=== PATIENT | female | born 1975 | race Caucasian/White ===

== ENCOUNTER 2016-11-08 14:11 | Emergency (ER) | payer BC, OTHER ==
--- NOTE | 2016-11-08 15:29 | XR ---
EXAMINATION TYPE: XR elbow complete RT DATE OF EXAM: 11/08/2016 3:23 PM COMPARISON: NONE HISTORY: Elbow pain TECHNIQUE: 3 views FINDINGS: I see no fracture nor dislocation. Joint spaces are normal. There is no sign of elbow joint effusion. IMPRESSION: Negative right elbow exam.
[2016-11-08] MEDS ORDERED: IBUPROFEN 800 MG TAB PO STA (15:30)
--- NOTE | 2016-11-08 15:30 | XR ---
EXAMINATION TYPE: XR forearm RT DATE OF EXAM: 11/08/2016 3:23 PM COMPARISON: NONE HISTORY: Elbow pain TECHNIQUE: 2 views FINDINGS: I see no fracture nor dislocation. Radius and ulna appear intact. There are no pathologic c alcifications. IMPRESSION: Negative right forearm exam.
--- NOTE | 2016-11-08 15:34 | ED ---
Upper Extremity HPI - General Chief Complaint: Extremity Injury, Upper Stated Complaint: shoulder & elbow pain Time Seen by Provider: 11/08/16 15:10 Source: patient Mode of arrival: ambulatory Limitations: no limitations - History of Present Illness Initial Comments: Patient is a 41-year-old female with medical history significant for bilateral carpal tunnel disease, presenting to the emergency department with complains of right elbow pain status post fall 4 days ago. Patient states she fell at work. Patient states she is unable to extend her right arm and is unable to maintain a steady grasp with her right hand. Patient denies previous injury, surgery, or trauma to right upper extremity. MD Complaint: Injury to:: right, elbow Onset/Timin -: days(s) Other Injuries: none Handedness: right Place: work Severity scale (1-10): 9 Improves With: immobilization Worsens With: movement of extremity Context: fall Associated Symptoms: weakness (Weakness of right hand) - Related Data Previous Rx's Medication Instructions Recorded Albuterol Inhaler [Ventolin Hfa 1 - 2 puff INHALATION Q4-6H PRN #1 10/27/16 Inhaler] inhaler Benzonatate [Tessalon Perles] 100 mg PO TID #20 cap 10/27/16 Ibuprofen [Motrin] 800 mg PO Q8HR #20 tab 11/08/16 Allergies Allergy/AdvReac Type Severity Reaction Status Date / Time No Known Allergies Allergy Verified 11/08/16 14:42 Review of Systems ROS Statement: Those systems with pertinent positive or pertinent negative responses have been documented in the HPI. ROS Other: All systems not noted in ROS Statement are negative. Past Medical History Additional Past Medical History / Comment(s): chronic back pain , ectopic , recurrent first trimester losses History of Any Multi-Drug Resistant Organisms: None Reported Additional Past Surgical History / Comment(s): rt leg surgery, multiple D&C's, ectopic Past Anesthesia/Blood Transfusion Reactions: No Reported Reaction Past Psychological History: Anxiety, Bipolar, Depression Smoking Status: Current every day smoker Past Alcohol Use History: None Reported Past Drug Use History: Marijuana General Exam Limitations: no limitations General appearance: alert, in no apparent distress Head exam: Present: atraumatic, normocephalic, normal inspection Eye exam: Present: normal appearance Neck exam: Present: normal inspection, full ROM. Absent: tenderness, meningismus, lymphadenopathy Respiratory exam: Present: normal lung sounds bilaterally. Absent: respiratory distress, wheezes, rales, rhonchi, stridor Cardiovascular Exam: Present: regular rate, normal rhythm, normal heart sounds. Absent: systolic murmur, diastolic murmur, rubs, gallop, clicks GI/Abdominal exam: Present: soft, normal bowel sounds. Absent: distended, tenderness, guarding, rebound, rigid Right Shoulder Exam: Present: normal inspection, full ROM. Absent: tenderness, swelling Upper Arm exam: Present: normal inspection. Absent: tenderness, swelling Elbow exam: Present: full ROM (Full range of motion but painful), tenderness ( Lateral aspect). Absent: swelling, laceration Forearm Wrist exam: Present: normal inspection, full ROM. Absent: tenderness, swelling Hand Wrist exam: Present: normal inspection, full ROM. Absent: tenderness, swelling Neuro motor exam: Present: wrist extension intact, thumb opposition intact, thumb IP flexion intact, thumb adduction intact, fingers 2-5 abduction intact Neurosensory exam: Present: 2-point discrimination, radial nerve intact, ulnar nerve intact, median nerve intact, other (Decreased sensation to right thumb, index, and middle finger, chronic per patient.) Vascular: Present: normal capillary refill, radial pulse, brachial pulse, ulnar pulse. Absent: vascular compromise Neurological exam: Present: alert, oriented X3, normal gait Psychiatric exam: Present: normal affect, normal mood Skin exam: Present: warm, dry, intact, normal color. Absent: rash Course Vital Signs 11/08/16 14:36 Temperature 99.0 F Pulse Rate 78 Respiratory 18 Rate Blood Pressure 176/98 O2 Sat by Pulse 96 Oximetry Medical Decision Making - Medical Decision Making Right elbow pain suspect sprain. X-ray negative for fracture or dislocation. Patient instructed on rest, anti-inflammatories, ice, and elevation. Patient instructed to follow-up with [facility] early next week as necessary. Return to the emergency department if symptoms do not improve or get worse. Patient agrees with treatment plan. - Radiology Data Radiology results: report reviewed Right elbow x-ray: No fracture or dislocation. Joint spaces are normal. No sign of elbow joint effusion. Right forearm x-ray: No fracture or dislocation. Radius and ulna appear intact. No pathologic calcifications. Negative right forearm exam Disposition Clinical Impression: Sprain of right elbow Disposition: HOME SELF-CARE Condition: Good Instructions: Elbow Sprain (ED) Additional Instructions: Continue Motrin 800 mg every 8 hours around the clock for 24-48 hours. Apply ice 4 times a day for approximately 15 minutes. Elevate elbow above her heart when sleeping. Follow-up with [facility] as directed. Follow-up with primary care physician as directed. Patient return to the emergency department if symptoms do not improve or get worse. Prescriptions: Ibuprofen [Motrin] 800 mg PO Q8HR #20 tab Referrals: None,Stated [Primary Care Provider] - 1-2 days Chris Jesus MD [Medical Doctor] - 1-2 days Time of Disposition: 15:47
[2016-11-08 15:58] VITALS: BP 171/92; PULSE 79; RESP 16; TEMP 97.6
== END 2016-11-08 16:04 | disposition home or self-care (01) ==
LOC: EC 14:11
DX: S53.401A Unspecified sprain of right elbow, initial encounter (principal); F17.200 Nicotine dependence, unspecified, uncomplicated; W19.XXXA Unspecified fall, initial encounter; Y99.0 Civilian activity done for income or pay; Z79.899 Other long term (current) drug therapy
CPT/HCPCS: 99283

== ENCOUNTER 2016-12-09 21:56 | Emergency (ER) | payer BC, OTHER ==
[2016-12-09 22:15] VITALS: BP 144/84; PULSE 71; RESP 18; TEMP 98.8
[2016-12-09] MEDS ORDERED: ORPHENADRINE 30 MG/ML 2 ML VIAL IM STA (22:59)
[2016-12-09] MEDS ORDERED: KETOROLAC 60 MG/2 ML VIAL IM STA (22:59)
--- NOTE | 2016-12-09 23:01 | ED ---
Back Pain HPI - General Chief Complaint: Back Pain/Injury Stated Complaint: back pain Time Seen by Provider: 12/09/16 22:32 Source: patient, RN notes reviewed Limitations: no limitations - History of Present Illness Initial Comments: This patient is a 41-year-old woman who states that she has a history of chronic intermittent back pain. She states that she believes she aggravated it when she slipped on some ice and fell landing on her buttocks around 6 AM today when she was getting ready to drive her to work. The patient states that she did try taking ibuprofen, but that the pain continues and she is not feeling like she can rest adequately. The patient indicates the bilateral lower back. States that the pain is currently moderate intensity. The pain gets worse if she bends or if she is sitting for long time. The pain is a little better if she is upright. The patient denies any radiation to the legs. She denies any change in bladder or bowel movements or any saddle anesthesia. MD Complaint: back pain, fall Onset/Timin -: hour(s) Similar Symptoms Previously: Yes Place: street Radiation: none Severity: moderate Quality: aching Consistency: constant Improves With: walking Worsens With: movement, sitting upright Context: fall Associated Symptoms: denies other symptoms Treatments Prior to Arrival: NSAIDS - Related Data Home Medications Medication Instructions Recorded Confirmed Albuterol Inhaler [Ventolin Hfa 1 - 2 puff INHALATION RT-Q4H PRN 12/09/16 Inhaler] Ibuprofen [Motrin] 800 mg PO Q8HR PRN 12/09/16 12/09/16 Previous Rx's Medication Instructions Recorded Ibuprofen [Motrin] 800 mg PO Q8HR PRN #20 tab 12/09/16 Methocarbamol [Robaxin-750] 750 mg PO TID PRN #30 tablet 12/09/16 Allergies Allergy/AdvReac Type Severity Reaction Status Date / Time No Known Allergies Allergy Verified 12/09/16 22:28 Review of Systems ROS Statement: Those systems with pertinent positive or pertinent negative responses have been documented in the HPI. ROS Other: All systems not noted in ROS Statement are negative. Constitutional: Denies: fever, chills, weakness Cardiovascular: Denies: chest pain, syncope Gastrointestinal: Denies: abdominal pain, vomiting, diarrhea, constipation Genitourinary: Denies: dysuria, frequency, hematuria Musculoskeletal: Reports: as per HPI, back pain Skin: Denies: rash, lesions Neurological: Denies: headache, weakness, numbness, paresthesias, abnormal gait Past Medical History Additional Past Medical History / Comment(s): chronic back pain , ectopic , recurrent first trimester losses History of Any Multi-Drug Resistant Organisms: None Reported Additional Past Surgical History / Comment(s): rt leg surgery, multiple D&C's, ectopic Past Anesthesia/Blood Transfusion Reactions: No Reported Reaction Past Psychological History: Anxiety, Bipolar, Depression Smoking Status: Current every day smoker Past Alcohol Use History: None Reported Past Drug Use History: Marijuana General Exam Limitations: no limitations General appearance: alert, in no apparent distress Respiratory exam: Present: normal lung sounds bilaterally. Absent: respiratory distress, wheezes, rales, rhonchi, stridor Cardiovascular Exam: Present: regular rate, normal rhythm, normal heart sounds. Absent: systolic murmur, diastolic murmur, rubs, gallop GI/Abdominal exam: Present: soft. Absent: distended, tenderness, guarding, rebound Extremities exam: Absent: pedal edema, calf tenderness Back exam: Present: normal inspection, paraspinal tenderness (Lumbar back). Absent: CVA tenderness (R), CVA tenderness (L), vertebral tenderness Neurological exam: Present: alert, normal gait, reflexes normal. Absent: motor sensory deficit Skin exam: Present: warm, dry, intact, normal color. Absent: rash Course Vital Signs 12/09/16 22:12 Temperature 98.8 F Pulse Rate 71 Respiratory 18 Rate Blood Pressure 144/84 O2 Sat by Pulse 99 Oximetry Disposition Clinical Impression: Strain of lumbar region Disposition: HOME SELF-CARE Condition: Fair Instructions: Chronic Back Pain (ED) Prescriptions: Ibuprofen [Motrin] 800 mg PO Q8HR PRN #20 tab PRN Reason: Pain Methocarbamol [Robaxin-750] 750 mg PO TID PRN #30 tablet PRN Reason: pain Referrals: None,Stated [Primary Care Provider] - 1-2 days
== END 2016-12-09 23:31 | disposition home or self-care (01) ==
LOC: EC 21:56
DX: S33.5XXA Sprain of ligaments of lumbar spine, initial encounter (principal); F17.200 Nicotine dependence, unspecified, uncomplicated; W00.0XXA Fall on same level due to ice and snow, initial encounter
CPT/HCPCS: 99283; 96372 ×2; J2360; J1885

== ENCOUNTER 2017-04-13 14:36 | Emergency (ER) | payer BC ==
[2017-04-13 14:43] VITALS: BP 153/91; PULSE 87; RESP 20; TEMP 99.2
[2017-04-13] MEDS ORDERED: ORPHENADRINE 30 MG/ML 2 ML VIAL IM STA (14:55)
[2017-04-13] MEDS ORDERED: KETOROLAC 60 MG/2 ML VIAL IM STA (14:55)
--- NOTE | 2017-04-13 14:58 | ED ---
Back Pain HPI - General Chief Complaint: Back Pain/Injury Stated Complaint: back pain Time Seen by Provider: 04/13/17 14:51 Source: patient, RN notes reviewed Limitations: no limitations - History of Present Illness Initial Comments: 41-year-old female presents emergency Department with chief complaint of low back pain. She has chronic back pain states occasionally she has exacerbation and requires an injection of pain meds. Patient states she's been doing more work. Patient denies any bowel bladder incontinence or retention. Denies any saddle anesthesias. Patient denies any abdominal pains time. She just has increased pain movement better at rest. Patient states she is to see Dr. Goff and Dr. Ramos - Related Data Home Medications Medication Instructions Recorded Confirmed Albuterol Inhaler [Ventolin Hfa 1 - 2 puff INHALATION RT-Q4H PRN 12/09/16 Inhaler] Ibuprofen [Motrin] 800 mg PO Q8HR PRN 12/09/16 12/09/16 Previous Rx's Medication Instructions Recorded Ibuprofen [Motrin] 800 mg PO Q8HR PRN #20 tab 12/09/16 Methocarbamol [Robaxin-750] 750 mg PO TID PRN #30 tablet 12/09/16 Allergies Allergy/AdvReac Type Severity Reaction Status Date / Time codeine Allergy Itching Verified 04/13/17 14:43 Review of Systems ROS Statement: Those systems with pertinent positive or pertinent negative responses have been documented in the HPI. ROS Other: All systems not noted in ROS Statement are negative. Past Medical History Additional Past Medical History / Comment(s): chronic back pain , ectopic , recurrent first trimester losses History of Any Multi-Drug Resistant Organisms: None Reported Additional Past Surgical History / Comment(s): rt leg surgery, multiple D&C's, ectopic Past Anesthesia/Blood Transfusion Reactions: No Reported Reaction Past Psychological History: Anxiety, Bipolar, Depression Smoking Status: Current every day smoker Past Alcohol Use History: None Reported Past Drug Use History: Marijuana General Exam Limitations: no limitations General appearance: alert, in no apparent distress Respiratory exam: Present: normal lung sounds bilaterally. Absent: respiratory distress, wheezes, rales, rhonchi, stridor Cardiovascular Exam: Present: regular rate, normal rhythm, normal heart sounds. Absent: systolic murmur, diastolic murmur, rubs, gallop, clicks GI/Abdominal exam: Present: soft, normal bowel sounds. Absent: distended, tenderness, guarding, rebound, rigid Extremities exam: Present: other (Bilateral lower extremity neurovascular intact equal strength in color and warmth) Back exam: Present: full ROM, tenderness (Tenderness low back diffusely exaggerated tenderness with palpation), paraspinal tenderness. Absent: vertebral tenderness Neurological exam: Present: alert, oriented X3, CN II-XII intact, reflexes normal. Absent: motor sensory deficit Course Vital Signs 04/13/17 14:41 Temperature 99.2 F Pulse Rate 87 Respiratory 20 Rate Blood Pressure 153/91 O2 Sat by Pulse 99 Oximetry Medical Decision Making - Medical Decision Making 41-year-old female presented emergency department for low back pain. This is chronic pain. Patient is requesting IM injections of pain meds. Patient has no red flag symptoms no neurological deficits. Patient be discharged at this time. Disposition Clinical Impression: Chronic back pain Disposition: HOME SELF-CARE Condition: Stable Instructions: Chronic Back Pain (ED) Additional Instructions: Please return to the Emergency Department if symptoms worsen or any other concerns. Referrals: None,Stated [Primary Care Provider] - 1-2 days Time of Disposition: 14:58
== END 2017-04-13 15:09 | disposition home or self-care (01) ==
LOC: EC 14:36
DX: G89.29 Other chronic pain (principal); M54.5 Low back pain; F17.200 Nicotine dependence, unspecified, uncomplicated; Z88.5 Allergy status to narcotic agent
CPT/HCPCS: 99283; 96372 ×2; J2360; J1885

== ENCOUNTER 2018-07-26 21:03 | Emergency (ER) | payer BC, OTHER ==
[2018-07-26 21:11] VITALS: BP 159/86; PULSE 83; RESP 18; TEMP 98.4
[2018-07-26] MEDS ORDERED: HYDROcodone/APAP 5-325MG 1 EACH TAB PO STA (21:40)
--- NOTE | 2018-07-26 21:59 | ED ---
Lower Extremity Injury HPI - General Source: patient Mode of arrival: ambulatory Limitations: no limitations <Antonette Isidro - Last Filed: 07/27/18 14:29> <No Youngblood - Last Filed: 07/28/18 07:29> - General Chief Complaint: Extremity Injury, Lower Stated Complaint: foot pain Time Seen by Provider: 07/26/18 21:16 - History of Present Illness Initial Comments: This a 42-year-old female with past medical history of previous left ankle sprain 2 months ago who returns today for chief complaint of persistent right ankle pain. Patient states that she was diagnosed with a right ankle sprain 2 months ago she has had chronic pain in the left medial aspect of her ankle. She states that increases with ambulation. She states that she used crutches for 2 weeks as directed as well as the walking boot. However she never follow- up with orthopedic surgery, and discontinued use of both devices. Pt states that last week she rolled her right ankle again but thought nothing of the slight increase in pain. Pt presents today for evaluation of persistent pain in the left ankle that increased with ambulation. Pt states she does take ibuprofen 800mg as prescribed at last visit for the pain however it has not helped. She denies any muscle weakness, numbness, tingling, decreased sensation , pallor or coolness of the extremity, paresthesias (Antonette Isidro) - Related Data Previous Rx's Medication Instructions Recorded Ibuprofen [Motrin] 600 mg PO Q6HR PRN #20 tab 06/12/18 Allergies Allergy/AdvReac Type Severity Reaction Status Date / Time codeine Allergy Itching Verified 07/26/18 21:17 Review of Systems ROS Other: All systems not noted in ROS Statement are negative. Constitutional: Denies: fever, chills ENT: Denies: ear pain, throat pain Respiratory: Denies: cough, dyspnea, wheezes Cardiovascular: Denies: chest pain Gastrointestinal: Denies: abdominal pain, vomiting, constipation Genitourinary: Denies: urgency, dysuria, frequency, hematuria Musculoskeletal: Reports: joint swelling, arthralgia Skin: Denies: rash, lesions, change in color Neurological: Denies: headache, weakness, numbness, paresthesias, confusion <Antonette Isidro - Last Filed: 07/27/18 14:29> ROS Other: All systems not noted in ROS Statement are negative. <No Youngblood P - Last Filed: 07/28/18 07:29> ROS Statement: Those systems with pertinent positive or pertinent negative responses have been documented in the HPI. Past Medical History Additional Past Medical History / Comment(s): chronic back pain , ectopic History of Any Multi-Drug Resistant Organisms: None Reported Additional Past Surgical History / Comment(s): rt leg surgery, multiple D&C's, ectopic Past Anesthesia/Blood Transfusion Reactions: No Reported Reaction Past Psychological History: Anxiety, Bipolar, Depression Smoking Status: Current every day smoker Past Alcohol Use History: Occasional Past Drug Use History: Marijuana <Antonette Isidro L - Last Filed: 07/27/18 14:29> General Exam Limitations: no limitations <Antonette Isidro L - Last Filed: 07/27/18 14:29> <No Youngblood P - Last Filed: 07/28/18 07:29> - General Exam Comments Initial Comments: General: The patient is awake and alert, in no distress, and does not appear acutely ill. Eye: Pupils are equal, round and reactive to light, extra-ocular movements are intact. No nystagmus. There is normal conjunctiva bilaterally. No signs of icterus. Cardiovascular: There is a regular rate and rhythm. No murmur, rub or gallop is appreciated. Respiratory: Lungs are clear to auscultation, respirations are non-labored, breath sounds are equal. No wheezes, stridor, rales, or rhonchi. Musculoskeletal: There is swelling at the medial malleolus of the right ankle. No ecchymosis or obvious deformity. Tenderness to palpation over the medial malleolus, no pain of the lateral, proximal tibia/fibula or forefoot. Full ROM of the ankle b/l including dorsiflexion/plantarflexion, inversion and eversion with tenderness with all movements. Pt is able to full wieght bear. Strength 5/ 5 with all motions of the ankle. Sensation intact of the LE equally b/l. no evidence of foot drop. DP and PT pulses equal bilaterally 2+. Lower extremities are warm and pink b/l. Compartments are soft and compressible. Neurological: A&O x 3. CN II-XII intact, There are no obvious motor or sensory deficits. Coordination appears grossly intact. Speech is normal. Skin: Skin is warm and dry and no rashes or lesions are noted. Psychiatric: Cooperative, appropriate mood & affect, normal judgment. (Antonette Isidro) Vital Signs 07/26/18 21:08 Temperature 98.4 F Pulse Rate 83 Respiratory 18 Rate Blood Pressure 159/86 O2 Sat by Pulse 99 Oximetry Medical Decision Making <Antonette Isidro - Last Filed: 07/27/18 14:29> <No Youngblood - Last Filed: 07/28/18 07:29> - Medical Decision Making Pt given norco for pain mgmt. XR reviewed by myself and Dr. Youngblood at this time there is an isolated medial malleolar fracture without significant displacement. Pt neurovascularly intact, no signs of joint instablity on exam. Pt placed in posterior mold splint with stirrups. Pt given disc with imaging results for orthopedic f/u in next 1-2 days. Pt states she has a pair of crutches at home and does not need a new prescription. Pt was instructed to non- weight bear until orthopedic clearance as well as take ibuprofen, rest, elevate and apply ice 20mins x3 times a day. Pt agreed with plan, denied questions at this time. Case discussed with Dr. Youngblood who agreed with impression and plan. Pt d/c in stable condition. (Antonette Isidro) I was available for consultation in the emergency department. The history and physical exam were done by the midlevel provider. I was consulted for this patient's care. I reviewed the case with the midlevel provider and based on their presentation of the patient, I agree with the assessment, medical decision making and plan of care as documented. (No Youngblood) Disposition Is patient prescribed a controlled substance at d/c from ED?: No Time of Disposition: 22:39 <Antonette Isidro - Last Filed: 07/27/18 14:29> <No Youngblood - Last Filed: 07/28/18 07:29> Clinical Impression: Fracture of medial malleolus of right tibia Disposition: HOME SELF-CARE Condition: Good Instructions: Ankle Fracture (ED) Additional Instructions: Please use medication as discussed. Please use crutches for ambulation. Please follow-up with orthopedic surgery in the next 1-2 days. Please return to emergency room if the symptoms increase or worsen or for any other concerns. Referrals: None,Stated [Primary Care Provider] - 1-2 days Chris Jesus MD [Medical Doctor] - 1-2 days
--- NOTE | 2018-07-26 21:59 | XR ---
PROCEDURE: XR tibia fibula LT - 2V DATE AND TIME: 07/26/2018 9:52 PM CLINICAL INDICATION: [facility] Pain TECHNIQUE: AP and lateral views from the knee to the ankle. COMPARISON: None FINDINGS: There is a fracture of the medial malleolus, involving the tibiotalar joint. Mortise is intact. Distal tibia fibula syndesmosis unremarkable. The posterior malleolus and lateral malleolus are intact. IMPRESSION: Medial malleolus fracture.
--- NOTE | 2018-07-26 22:01 | XR ---
PROCEDURE: XR ankle complete LT 3V DATE AND TIME: 07/26/2018 9:52 PM CLINICAL INDICATION: [facility] Pain TECHNIQUE: Department protocol. 3V COMPARISON: None FINDINGS: There is prominent soft tissue swelling. There is an oblique intra-articular fracture of th e medial malleolus. The mortise is intact. No other fractures. IMPRESSION: Medial malleolar fracture.
== END 2018-07-26 22:58 | disposition home or self-care (01) ==
LOC: EC 21:03
DX: S82.54XA Nondisplaced fracture of medial malleolus of right tibia, initial encounter for closed fracture (principal); G89.29 Other chronic pain; M25.572 Pain in left ankle and joints of left foot; F17.200 Nicotine dependence, unspecified, uncomplicated; Z88.5 Allergy status to narcotic agent; X50.9XXA Other and unspecified overexertion or strenuous movements or postures, initial encounter; Y92.009 Unspecified place in unspecified non-institutional (private) residence as the place of occurrence of the external cause
CPT/HCPCS: 29515; 99283

== ENCOUNTER 2018-08-27 06:56 | Emergency (ER) | payer BC, OTHER ==
[2018-08-27 07:05] VITALS: BP 177/97; PULSE 98; RESP 16; TEMP 98.3
--- NOTE | 2018-08-27 08:04 | ED ---
General Adult HPI - General Chief complaint: Extremity Injury, Lower Stated complaint: Cast too tight Time Seen by Provider: 08/27/18 07:55 Source: patient, RN notes reviewed Mode of arrival: ambulatory Limitations: no limitations - History of Present Illness Initial comments: Patient is a pleasant 42-year-old female presenting to the emergency department because her cast feels too tight. Patient did have her cast placed just yesterday. Patient states she does have a distal tibia fracture. Patient states she did have a cast for 4 weeks and it was replaced just yesterday. Patient states she has discomfort through the majority of the cast. Patient states her orthopedic doctor is Dr. bills. Patient states her actual injury was several months ago. No calf swelling. - Related Data Previous Rx's Medication Instructions Recorded Ibuprofen [Motrin] 600 mg PO Q6HR PRN #20 tab 06/12/18 Allergies Allergy/AdvReac Type Severity Reaction Status Date / Time codeine Allergy Itching Verified 07/26/18 21:17 Review of Systems ROS Statement: Those systems with pertinent positive or pertinent negative responses have been documented in the HPI. ROS Other: All systems not noted in ROS Statement are negative. Constitutional: Denies: fever Eyes: Denies: eye pain ENT: Denies: ear pain Respiratory: Denies: cough Cardiovascular: Denies: chest pain Endocrine: Denies: fatigue Gastrointestinal: Denies: abdominal pain Genitourinary: Denies: dysuria Musculoskeletal: Denies: back pain Skin: Denies: rash Neurological: Denies: weakness Past Medical History Additional Past Medical History / Comment(s): chronic back pain , ectopic History of Any Multi-Drug Resistant Organisms: None Reported Additional Past Surgical History / Comment(s): rt leg surgery, multiple D&C's, ectopic Past Anesthesia/Blood Transfusion Reactions: No Reported Reaction Past Psychological History: Anxiety, Bipolar, Depression Smoking Status: Current every day smoker Past Alcohol Use History: Occasional Past Drug Use History: Marijuana General Exam Limitations: no limitations General appearance: alert, in no apparent distress Respiratory exam: Present: normal lung sounds bilaterally Cardiovascular Exam: Present: regular rate, normal rhythm GI/Abdominal exam: Present: soft. Absent: tenderness Extremities exam: Present: normal inspection (Left lower leg cast is present. No swelling behind the knee. Toes are visible and patient is freely able to move them. Cap refill less than 2 seconds. No color change. Sensation intact. ) Neurological exam: Present: alert. Absent: motor sensory deficit Psychiatric exam: Present: normal affect, normal mood Skin exam: Present: normal color. Absent: rash Course Vital Signs 08/27/18 07:03 Temperature 98.3 F Pulse Rate 98 Respiratory 16 Rate Blood Pressure 177/97 O2 Sat by Pulse 100 Oximetry - Reevaluation(s) Reevaluation #1: 08/27/18 09:33 Cast removed by nursing staff. Foot reexamined. Patient symptom-free. Procedures - Orthopedic Splinting/Casting Injury #1 Side: left Lower Extremity Injury Location: short leg Lower Extremity Immobilizer: posterior splint Disposition Clinical Impression: Cast discomfort Disposition: HOME SELF-CARE Condition: Stable Instructions: Leg Fracture (ED) Additional Instructions: Please follow-up with your orthopedic doctor beginning of the week for repeat cast placement. Return for increased pain, worsening symptoms or other concerns. Is patient prescribed a controlled substance at d/c from ED?: No Referrals: Soledad Francisco MD [STAFF PHYSICIAN] - 1-2 days Erik Bills MD [REFERRING] - 1-2 days Time of Disposition: 09:34
== END 2018-08-27 09:58 | disposition home or self-care (01) ==
LOC: EC 06:56
DX: Z47.89 Encounter for other orthopedic aftercare (principal); F17.200 Nicotine dependence, unspecified, uncomplicated; Z88.5 Allergy status to narcotic agent
CPT/HCPCS: 29515; 99282

== ENCOUNTER → 2019-03-17 | Outpatient (CLI) | payer BC ==
--- NOTE | 2019-03-17 16:13 | MR ---
EXAMINATION TYPE: MR lumbar spine wo/w con DATE OF EXAM: 03/17/2019 COMPARISON: Lumbar spine x-ray August 02, 2016. HISTORY: Low back pain per order. Pain for 21 years causing pain into bilateral lower extremities per patient. TECHNIQUE: Multiplanar, multisequence images of the lumbar spine is performed without and with IV contrast, util izing 7.5 mL intravenous Gadavist FINDINGS: Sagittal images of the lumbar spine show vertebral body heights and alignment to appear sat isfactory. There is disc desiccation L4-L5 and L5-S1 levels. There is moderate disc space narrowing w ith heterogeneous bony uptake to endplate changes and mild anterior spurring L5-S1 level. The conus medullaris is normal in position and signal ending mid L1 level. No suspicious enhancement is seen. Axial images show the T12-L1 and L1-L2 levels to appear within normal limits. Axial images at L2-L3 and the L3-L4 level show mild facet degenerative changes bilaterally but spinal canal is preserved and bilateral neural foramina are patent. Axial images at the L4-L5 level shows mild to moderate facet degenerative changes bilaterally. There is focal left paracentral disc protrusion mildly facing anterior thecal sac, bilateral neural foramin a are patent. Axial images at the L5-S1 level show mild facet degenerative changes bilaterally. There is broad-base d right paracentral disc protrusion with annular tear effacing anterolateral thecal sac and right lat eral recess and causing moderate right-sided inferior neural foraminal narrowing. Left-sided neural f oramen is patent. No suspicious incidental retroperitoneal findings are present. IMPRESSION: Multilevel degenerative changes mid to lower lumbar spine with findings most prominent at L4-L5 and L5-S1 level as detailed above.
== END | disposition home or self-care (01) ==
LOC: RADMRIMAIN 15:22
PROVIDERS: ATTEND Family Medicine
DX: M47.817 Spondylosis without myelopathy or radiculopathy, lumbosacral region (principal); M47.816 Spondylosis without myelopathy or radiculopathy, lumbar region
CPT/HCPCS: 72158; A9585

== ENCOUNTER → 2024-06-26 | Outpatient (CLI) | payer OTHER ==
--- NOTE | 2024-06-27 08:55 | MR ---
EXAMINATION TYPE: MR lumbar spine wo con DATE OF EXAM: 06/26/2024 5:12 PM CLINICAL INDICATION: Female, 48 years old with history of M54.50 LOW BACK PAIN, UNSPECIFIED R20.02, M 54.16; [facility], COMPARISON: 03/17/2019 TECHNIQUE: Multi planar, multi sequence imaging was performed utilizing: T1-weighted, T2-weighted, a nd turbo inversion recovery imaging of the lumbar spine. IV Contrast: cc . (None if empty) FINDINGS: Alignment: The lumbar vertebral bodies have preserved heights and alignment. Cord: The conus medullaris and the distal spinal cord appear unremarkable with regards to their signa l intensity and morphology. Bones/Discs: Mild degeneration changes throughout the spine with osteophyte formation and facet joint arthropathy. L4-L5 and L5-S1 disc desiccation is present. Reactive adjoining endplate edema at . L5- S1. T12-L1: No evidence of significant spinal canal stenosis or neural foraminal stenosis. L1-L2: No evidence of significant spinal canal stenosis. Facet joint arthropathy mild bilateral neura l foraminal stenosis. L2-L3: No evidence of significant spinal canal stenosis. Facet joint arthropathy mild bilateral neura l foraminal stenosis. L3-L4: Disc bulge and facet joint arthropathy result in mild spinal canal and moderate bilateral neur al foraminal stenosis. L4-L5: Disc bulge and facet joint arthropathy result in mild spinal canal and moderate bilateral neur al foraminal stenosis. L5-S1: Large right disc protrusion/extrusion similar to 2019 displacing right canal nerves, severe ri ght and moderate to severe left neural foraminal stenosis. No significant spinal canal or neural fora orin stenosis in the remainder of the visualized levels. Other findings: None. IMPRESSION: Overall similar exam to prior in 2019. 1. L5-S1 right central/right foraminal disc extrusion/protrusion similar to 2019 displacing multiple nerves. There is severe right and moderate to severe left neural foraminal stenosis. 2. No definitive evidence significant spinal canal stenosis. 3. Mild lower spine disc degeneration with associated osteoarthritic changes.
== END | disposition home or self-care (01) ==
LOC: RADMRIMAIN 16:24
PROVIDERS: ATTEND Family Medicine
DX: M51.17 Intervertebral disc disorders with radiculopathy, lumbosacral region (principal); M47.26 Other spondylosis with radiculopathy, lumbar region; M99.73 Connective tissue and disc stenosis of intervertebral foramina of lumbar region
CPT/HCPCS: 72148

== ENCOUNTER → 2024-08-17 | Outpatient (CLI) | payer OTHER ==
--- NOTE | 2024-08-17 15:41 | CT ---
EXAMINATION TYPE: CT lumbar spine wo con CT DLP: 920 mGycm, Automated exposure control for dose reduction was used. DATE OF EXAM: 08/17/2024 1:35 PM COMPARISON: MRI lumbar spine 06/26/2024, 03/17/2019. CLINICAL INDICATION:Female, 48 years old with history of M54.16 low back pain; PHH, Low back and leg pain, pt did state old injury when she was younger. TECHNIQUE: Multiple axial images were obtained from the midportion of T11 through the sacroiliac jonathan nts. Soft tissue and bone windows in coronal and sagittal planes were obtained and reviewed. Contrast used: none. Oral contrast used: none. FINDINGS: Alignment: There are 5 lumbar type vertebral bodies within normal alignment. Bone: No evidence of acute fracture is identified. Remote fracture versus congenital deformity of th e left L3 transverse process. Discs: T12-L1: No spinal canal or neural foraminal stenosis is identified. L1-L2: No spinal canal or neural foraminal stenosis is identified. L2-L3: No spinal canal or neural foraminal stenosis is identified. L3-L4: No spinal canal or neural foraminal stenosis is identified. L4-L5: Broad-based disc bulge with possible central superior disc extrusion of 3 mm along the posteri or aspect of the L4 vertebral body. Results in mild effacement of the anterior thecal sac. Bilateral facet joint enlargement. Mild bilateral neural foraminal narrowing. L5-S1: Redemonstration of a large right paracentral disc protrusion with calcification superimposed u robinson a broad-based disc bulge. This results in moderate effacement of the anterior and right aspect of the thecal sac with effacement of the right nerves. There is extension into the right foraminal zone . Bilateral facet arthropathy with moderate left neural foraminal stenosis. Severe right neuroforamin al stenosis. Other: Periampullary duodenal diverticulum. Mild atherosclerotic calcification of the aorta and its b ranches. IMPRESSION: 1. No evidence for spinal fracture. 2. Overall are similar L5-S1 disc bulge with large right disc protrusion with moderate effacement of anterior thecal sac with extension to the right foraminal zone resulting in severe right neural luc inal stenosis. Facet arthropathy with disc bulge results in moderate left neural foraminal stenosis a t this level. 3. L4-L5 disc bulge with possible small superior central disc extrusion. There is also mild effacemen t of the anterior thecal sac. This could further evaluated with MRI lumbar spine. [facility], , 08/17/2024 3:38 PM
== END | disposition home or self-care (01) ==
LOC: RADCTMAIN 13:14
PROVIDERS: ATTEND Orthopaedic Surgery
CPT/HCPCS: 72131

== ENCOUNTER → 2024-09-25 | Outpatient (CLI) | payer OTHER ==
[2024-09-25 18:41] LABS: Basophils # (A) 0.09 X 10*3/uL (0.00-0.10); Basophils % (A) 0.9 %; Eosinophils % (A) 4.1 %; HCT 44.2 % (37.2-46.3); HGB 14.4 g/dL (12.0-15.0); Lymphocytes # (A) 3.87 X 10*3/uL (0.90-5.00); Lymphocytes % (A) 39.6 %; MCH 31.2 pg (27.0-32.0); MCHC 32.6 g/dL (32.0-37.0); MCV 95.9 FL (80.0-97.0); Mean Platelet Volume 10.7 FL (9.5-12.2); Monocytes # (A) 0.67 X 10*3/uL (0.20-1.00); Monocytes % (A) 6.9 %; NRBC Per 100 WBC 0 X 10*3/uL (0.00-0.01); Neutrophils # (A) 4.68 X 10*3/uL (1.80-7.70); Neutrophils % (A) 47.9 %; Platelet Count 251 X 10*3/uL (140-440); RBC 4.61 X 10*6/uL (4.10-5.20); RDW 15.2 % (11.5-14.5); WBC 9.77 X 10*3/uL (4.50-10.00)
[2024-09-25 19:06] LABS: ALT 17 U/L (8-44); AST 16 U/L (13-35); Albumin 4.1 g/dL (3.8-4.9); Albumin/Globulin Ratio 1.24 Ratio (1.60-3.17); Alkaline Phosphatase 113 U/L (41-126); BUN/Creat Ratio 14.22 Ratio (12.00-20.00); Blood Urea Nitrogen 12.8 mg/dL (9.0-27.0); Calcium 9.8 mg/dL (8.7-10.3); Chloride 103 mmol/L (96-109); Globulin 3.3 g/dL (1.6-3.3); Glucose 99 mg/dL (70-110); Potassium 4.5 mmol/L (3.5-5.5); Sodium 141 mmol/L (135-145); Total Bilirubin 0.3 mg/dL (0.3-1.2); Total Protein 7.4 g/dL (6.2-8.2)
[2024-09-25 19:51] LABS: INR 0.99 sec (0.93-1.11); Prothrombin Time 10.7 sec (9.9-11.9)
== END | disposition home or self-care (01) ==
LOC: LABWHC1 15:40
PROVIDERS: ATTEND Family Medicine
DX: Z01.818 Encounter for other preprocedural examination (principal); M51.26 Other intervertebral disc displacement, lumbar region; M48.061 Spinal stenosis, lumbar region without neurogenic claudication; E55.9 Vitamin D deficiency, unspecified
CPT/HCPCS: 36415; 80053; 82306; 85025; 85610; 93005

== ENCOUNTER → 2024-10-04 | Outpatient (CLI) | payer OTHER | END | disposition home or self-care (01) | LOC: LABPAT 10:57 | PROVIDERS: ATTEND Orthopaedic Surgery | DX: Z01.812 Encounter for preprocedural laboratory examination (principal); M51.26 Other intervertebral disc displacement, lumbar region; Z22.322 Carrier or suspected carrier of Methicillin resistant Staphylococcus aureus | CPT/HCPCS: 86850; 86900; 86901; 87070 ==

== ENCOUNTER 2024-10-10 08:25 | Day surgery (SDC) | payer OTHER ==
--- NOTE | 2024-10-10 06:35 | P.HPOR ---
History of Present Illness H&P Date: 10/04/24 .D:Date: 10/04/24 : 04:44pm .T:Title: *Pre-OP H1 [facility] [address] [place] [id number]| PROVIDER: GARRET ARZATE DO CLINICAL SUMMARY: *Ms. Waite is a 49-year-old female who presents for pre-operative evaluation for planned L5-S1 Left MIS TLIF. She reports a 4-year history of progressive, severe lumbar pain (VAS 10/10) with bilateral lower extremity radiculopathy. Symptoms include sharp and throbbing pain radiating to toes, with documented episodes of lower extremity giving way. Conservative management including physical therapy, multiple medication trials (Celebrex, Flexeril, Gabapentin, Prednisone, Duloxetine, NSAIDs), and activity modification has failed to provide relief. Imaging reveals L5-S1 disc extrusion/protrusion with severe right and moderate to severe left neural foraminal stenosis, confirmed by both MRI (06/26/24) and CT (08/17/24). Examination shows positive straight leg raise, motor weakness (4/5) in lower extremities, and decreased reflexes (1/2) at patellar and Achilles on left. Patient demonstrates understanding of surgical risks and wishes to proceed with intervention.Ms. Waite [id number] female who presents for pre-operative evaluation for planned L5-S1 Left MIS TLIF. She reports a 4-year history of progressive, severe lumbar pain (VAS 10/10) with bilateral lower extremity radiculopathy. Symptoms include sharp and throbbing pain radiating to toes, with documented episodes of lower extremity giving way. Conservative management including physical therapy, multiple medication trials (Celebrex, Flexeril, Gabapentin, Prednisone, Duloxetine, NSAIDs), and activity modification has failed to provide relief. Imaging reveals L5-S1 disc extrusion/protrusion with severe right and moderate to severe left neural foraminal stenosis, confirmed by both MRI (06/26/24) and CT (08/17/24). Examination shows positive straight leg raise, motor weakness (4/5) in lower extremities, and decreased reflexes (1/2) at patellar and Achilles on left. Patient demonstrates understanding of surgical risks and wishes to proceed with intervention. DEMOGRAPHICS: Age: 49 year Height: 5'2" Weight: 187 lbs BP:/ BMI: 34.20 kg/m2 Occupation: *Unemployed CC: lumbar pain * VAS: 10 HISTORY: Ms. Waite presents to the office today, 10/04/24, for a pre-operative appoitnemnt preceding her L5-S1 Left MIS TLIF. Patient describes a severe constant sharp and throbbing lumbar pain that has been progressing over the last 4 years. Patient denies any injury to indicate onset of symptoms. In addition to her lumbar pain, patient states it radiates into the bilateral lower extremities into her toes. Patient does state that her lower extremities have given out, resulting in x 2 falls. She states that she has difficulty with changing positions from sitting to standing. Patient has trialed Celebrex without resolution of her symptoms. Patient has trialed the below listed treatm ent modalities without any relief. Otherwise patient denies any f/c/sob/cp, perineal numbness or tingling, bowel or bladder incontinence/retention. Patient is ambulatoryindependently. P1 The patients past social, medical, family, surgical history, as well as review of systems, have been reviewed. Please refer to the History and Physical form that has been scanned into our electronic medical record system. R0 16 points review of systems completed and as stated in HPI, all other systems reviewed are negative. PAST TREATMENTS: PAST IMAGING: YES -MRI, CT, XR TRAUMA RELATED: NO - WORK RELATED: NO - PT IN LAST 6 MONTHS: YES -no changes PHYSICIAN DIRECTED HOME EXERCISE PROGRAM: YES -no help ACTIVITY MODIFICAITON: YES -limited BLTPP MEDICATIONS: YES -Flexeril, motrin, gabapentin, prednisone ALTERNATIVE INTERVENTIONS (CHIROPRACTIC, ACCUPUNCTURE, MASSAGE, RICE): YES - BRACING: NO - INJECTIONS (MUKUL, TF, RFA): NO - MEDICAL HISTORY: Past Medical History: REVIEWED STATED IN CHART Past Surgical History: REVIEWED STATED IN CHART Social History: REVIEWED STATED IN CHART SMOKING: Never smoker ETOH: None SUBSTANCES: None Family History: REVIEWED STATED IN CHART P1 Current Medications: Rx: cariprazine 1.5 mg capsule Ref: 0 Instructions: take 1 capsule (1.5 mg) by oral route once daily Rx: DULoxetine 60 mg capsule,delayed release Ref: 0 Instructions: take 1 capsule (60 mg) by oral route once daily Rx: CeleBREX 200 mg capsule Ref: 0 Instructions: take 1 capsule (200 mg) by oral route 2 times per day Rx: cyclobenzaprine 10 mg tablet Ref: 0 Instructions: take 1 tablet (10 mg) by oral route 3 times per day Rx: gabapentin 300 mg capsule Ref: 0 Instructions: take 1 capsule (300 mg) by oral route 3 times per day P1 PHYSICAL EXAM: General: AOX3, NAD, Well hydrate, well nourished HEENT: No lumps or masses Extremities: No color changes, no pooling INTEGUMENT: Appearance: Normal color and turgor Surgical Incisions: NA Hairy Patches: ABSENT Dorsal Skin Dimples: Normal [employer] spots: ABSENT PALPATION: TTP Midline: NO Paracervical: YES Parathoracic: NO Paralumbar: NO SIJ TESTING: NT POSTURAL BALANCE: Coronal: BALANCED Sagittal: BALANCED Shoulder height: LEVEL Pelvic Girdle: LEVEL ROM AND APPEARANCE: Neck: RESTRICTED Lumbar: RESTRICTED Shoulders: Symmetrical Hips: Symmetrical Knees: Symmetrical Hands: Symmetrical Feet: Symmetrical VASCULAR STATUS: PALPABLE PULSES B/L UE AND LE 2/4 RAD/ULNAR/DP/PT Edema: NONE NEUROLOGICAL EXAMINATION: Mental Status: Awake, alert, fully oriented with normal attention, concentration, and memory. Fluent appropriate speech. CRANIAL NERVES: I: Olfactory not assessed. II: Visual acuity normal, no visual field deficit noted with confrontation. III, IV: Normal pupillary reflexes & intact extraocular movements without nystagmus. V, : Intact symmetrical facial sensation. VII: Intact symmetrical facial motor movement: Hearing intact. IX, X: Intact gag, swallow, & normal voice. XI: Sternocleidomastoid, trapezius function intact. XII: Tongue midline with normal movements. TENSIONING: * L'HERMITTE'S SIG:NEG SPURLUNG'S SIGN:NEG CUBITAL TUNNEL COMPRESSION:NEG TINELS AT WRIST:NEG STRAIGH LEG RAISE:POS CONTRALATERAL STRAIGHT LEG RAISE: NEG MOTOR EXAM (0-5/5, NT) Muscle appearance: Symmetrical, without signs of atrophy or dystrophy UPPER EXTREMITY RIGHT LEFT Shoulder Abduction 5 5 Biceps 5 5 Triceps 5 5 Wrist Extension 5 5 Hand Intrinsics 5 5 Assistant Plant Control Operator 5 5 LOWER EXTREMITY RIGHT LEFT Hip Flexion 4 4 Knee Extension 4 4 Knee Flexion 4 4 Dorsiflexion 4 4 Plantarflexion 4 4 EHL 4 4 FHL 4 4 REFLEXES (0-4/2, NT): RIGHT LEFT Bicep 2 2 Brachioradialis 2 2 Triceps 2 2 Patellar 2 1 Achilles 2 1 PATHOLOGICAL REFLEXES: RIGHT LEFT MONACO'S ABSENT ABSENT CLONUS ABSENT ABSENT BABINSKI ABSENT ABSENT RECTAL TONE: INTACT/NT SENSATION (0-4, NT): Sensation intact to LT and Pain * C5-T1 distribution BUE * L2-S2 distribution BLE *Exceptions below* DERMATOMAL DEFICIT/RADICULAR PATTERN: L5-S1 RIGHT GAIT AND FUNCTIONAL EVALUATION: AMBULATORY AID none ROMBERG'S TEST INTACT HAND AND FINGER DEXTERITY INTACT NO DYSDIADOCHOKINESIA EXAM NEG B/L YES TOE/HEEL WALK INTACT WITH GOOD BALANCE YES SQUAT AND RISE W/O ASSISTANCE TO 60 DEG KNEE FLEXION YES SINGLE LEG STANCE INTACT [place] NEG IMAGING: XRay Lumbar Multiview (AP, Lateral, Flexion, Extension) with AP pelvis; 5 [facility] at [facility] on 07/19/24: L4-S1 spondylitic and degenerative changes with preserved alignment. There is diminished disc height at these levels, most significant L5-S1. Vertebral body heights are preserved. No acute osseous abnormalities. Pelvis: The visualized sacrum and iliac wings are within normal limits. [facility] 06[facility]26/24 of Lumbar Spine: IMPRESSION: Overall similar exam to prior in 2019. 1. L5-S1 right central/right foraminal disc extrusion/protrusion similar to 2019 displacing multiple nerves. There is severe right and moderate to severe left neural foraminal stenosis. 2. No definitive evidence significant spinal canal stenosis. 3. Mild lower spine disc degeneration with associated osteoarthritic changes. CT Date: 08/17/24 Location: [facility] Region: lumbar Contrast: N IMAGES ARE REVIEWED WITH THE PATIENT IN OFFICE AND DEMONSTRATE THE FOLLOWING: FINDINGS: similar findings and MRI with no evidence for fracture overall L5-S1 disc herniation with right paracentral effacement of the thecal sac extension of the right foraminal region causing severe right foraminal stenosis. Facet arthropathy as well on the right and left L4 5 and 51. There is mild effacement of the anterior thecal sack of L4-L5 as well. No acute fractures. IMPRESSION: It was my pleasure to have seen and examined Lita. I reviewed the patient's clinical syndrome, physical findings, and imaging studies during the appointment today. It is my impression that the patient has a diagnosis of. 1.L5-S1 HNP 2.L5-S1 spondylosis and stenosis 3.Lower extremity radiculopathy PLAN: DISCUSSION: -I discussed the patient's imaging as well as clinical symptoms and findings with him as well as treatment options nonoperative and operative. At this time they have elected to pursue operative treatment for this as they have failed conservative measures including cini-tgr-pjubqlf medications prescription medications physical therapy home exercise chiropractics or massage and epidural steroid injections. SURGICAL RECOMMENDATION -L5-S1 minimally invasive posterior lateral and interbody fusion, right Surgical Procedure Risk Review Lita Waite is a 49 year old female presenting for evaluation of sudden onset of severe lower extremity pain weakness difficulty with ambulation. It was my pleasure to have seen and examined Ms. Waite. In our visit today we have had a chance to go over subjective complaints, physical examination findings and treatments, including the natural course history without intervention and various interventional options. The imaging demonstrates severe spondylosis with disc collapse and disc degeneration height loss noted complete changes disc osteophyte complex right paracentral herniation causing severe foraminal and moderate central as well as lateral recess stenosis L5-S1. . On physical exam, Ms. Waite demonstrates severe low back pain and axial as well as lower extremity radiculopathy lower extremity weakness progressive changes in lower extremity radiculopathy and weakness.. I explained to the patient that as her condition progresses it could cause Continued symptoms progressive symptoms neurologic progression . At this time, based on the patients imaging and physical exam, I recommend surgery in the form or a: L5-S1 minimally invasive posterior lateral and interbody fusion, right . I discussed the risk and benefits of this procedure at length with Ms. Waite. The patient agreed to consider pursuing the procedure mentioned above. Plan: 1. L5-S1 minimally invasive posterior lateral and interbody fusion, right 2. Follow up with PCP for surgical clearance 3. Review of surgical risks and benefits as well as an educational packet on the proposed surgical procedure. 4. appropriate preoperative labs ordered EKG chest x-ray and clearances Risks: All surgical procedures come with inherent risks, including those related to positioning, anesthesia, intraoperative findings, and postoperative complications. It is important to understand that surgery does not come with any guarantee of a successful outcome as complications and adverse events are always possible. The patient was given a handout in office today discussing the surgical procedure and risks associated with the intervention, both of which were discussed with the patient. These risks include but are not limited to the following: ? Experiencing same, different or even worse symptoms in back, neck, arms, or legs compared to before surgery. ? Requiring further surgery or other forms of treatment presently or at some time in the future at same or other levels of the intended spine surgery. ? On an extreme but fortunately relatively rare basis severe complication such as blindness, stroke, heart attack, temporary and/or permanent nerve injury, paralysis, coma, or may occur, sometimes without known explanation. ? Surgical complications may include but are not limited to risk of infection, fluid accumulation in the surgical dissection site, including a seroma or hematoma, that requires additional surgery, wound drainage, bleeding, new numbness or weakness, vision changes/loss, spinal fluid leakage, non-healing and/or infected incision, headaches, difficulty or inability to swallow, hoarseness, hemopneumothorax, pneumothorax, impotence, retrograde ejaculation, vaginal dryness; injury to nerves, spinal cord, blood vessels, lymphatics or other vital organs (i.e., bowel injury, injury to the great vessels); heteroto pic bone formation; complications related to the hardware such as screws, rods, cages including misplaced hardware, device failure, instrumentation at the wrong spine level, hardware fracture/breakage, or hardware loosening; vertebral failure of the spinal column above or below the newly placed hardware; retained surgical instrumentations or devices and the need for further surgery. ? Medical risks of the planned spine surgery include but are not limited to generalized Infections to the whole body or local areas outside of the surgical site (sepsis), heart attack, bleeding, anaphylaxis, meningitis, seizure, epilepsy, hearing loss, burn abreu, laceration of the head or other areas of the body, bruising, hypersensitivity of the skin, bladder over distension; allergic reaction; shoulder injury related to positioning; fat, blood and air clots to other areas of the body like heart, lungs, brain; failure of internal organs such as lungs, kidneys, liver and excessive bleeding. If blood transfusions are necessary, note that transfusions may cause intolerance reactions such as anaphylaxis or other complex reactions. Despite best efforts, the results of spine surgery might not heal in terms of bone, soft tissues such as skin, fascia, ligaments, and joints. Additionally, in order to achieve best possible results, spine surgery may be carried out beyond the initially planned levels and involve decompression, fusion including insertion of hardware at levels other than the original intended area of surgical interest change some portions of the procedure in order to ensure the best possible outcomes. With spine surgery and spinal fusion, there are different off label uses of instrumentation (devices, implants and hardware) as well as biological substances (bone morphogenic proteins, demineralized bone matrix) as well as using extra bone from allograft sources (i.e. cadaver bone) or autograft (iliac crest bone, ribs, or the spine itself). The patient has been given information about these practices and their inherent risks and benefits. [facility] Physician Assistants are medically trained surgical providers who function in the outpatient, inpatient, and operating room setting under the direct supervision of the attending surgeon.They assist in the operating room with direct supervision of the attending surgeons. The patient has had a chance to review all the listed information, has been given print outs detailing this information, and has had all his/her questions answered to their satisfaction. It was my pleasure to have seen and examined Ms. Waite. In our visit today we have had a chance to go over my understanding of our patient's current condition, the natural course history without intervention and various interventional options. Questions were invited and answered, and the patient wishes to proceed as outlined above. I have seen and examined the patient for 25 minutes and we have spent more than 50% of the time in repeat and detailed counseling about the patient's condition, its natural course history with out and as much as can be predicted with surgery and re-review of various surgical treatment options. In conclusion,Ms. Waite and her spouse/partner requested we proceed with the above suggested surgery and are willing to accept risks and limitations of the suggested surgery as nature of the disease process and our best attempts at treatment for the condition. Coding Rationale Primary CPT Codes: * 75769: Lumbar spine fusion combined posterior or posterolateral technique with posterior interbody technique (PLIF/TLIF), single level L5-S1 67575: nonsegmental instrumentation L5-S1 09627: laminectomy, facetectomy and foraminotomy for decompression and cage placement 54891: Insertion of biomechanical device, cage x1 L5-S1 66691: Steriotactic navigaiton for screw placement, [employer] Navigation, ensure accuracy of screws Primary ICD-10 Diagnosis Codes: * M51.16: Intervertebral disc disorders with radiculopathy, lumbar region M48.062: Spinal stenosis, lumbar region with neurogenic claudication M54.16: Radiculopathy, lumbar region M47.816: Spondylosis without myelopathy or radiculopathy, lumbar region G57.03: Lesion of sciatic nerve, bilateral lower limbs M51.36: Other intervertebral disc degeneration, lumbar region Surgical Rationale Patient Demographics: * 48-year-old female BMI: 34.20 kg/m2 VAS pain score: 10/10 Failed Conservative Management: * Medication trials: * Celebrex Flexeril Gabapentin Prednisone Duloxetine NSAIDs * Physical therapy without improvement Home exercise program without benefit Activity modification Alternative therapies attempted Neurological Findings: * Positive straight leg raise test Motor weakness (4/5) in multiple muscle groups of lower extremities Decreased reflexes (1/2) at patellar and Achilles on left Dermatomal deficits in L5-S1 distribution History of lower extremity giving way with falls (x2) Imaging Findings Supporting Surgery: * MRI (06/26/24): * L5-S1 right central/foraminal disc extrusion/protrusion Severe right and moderate to severe left neural foraminal stenosis Multilevel disc degeneration * CT (08/17/24): * Confirms L5-S1 disc herniation Right paracentral effacement of thecal sac Severe right foraminal stenosis Bilateral facet arthropathy L4-5 and L5-S1 Surgical Indications: * Progressive neurological symptoms Failed conservative management. Documented pathology on imaging correlating with clinical findings Functional decline Severe pain (VAS 10/10) Risk of further neurological deterioration Proposed Surgery: L5-S1 minimally invasive posterior lateral and interbody fusion, right side * Goals: * Decompress neural elements Stabilize the symptomatic segment Restore foraminal height Prevent further deterioration Improve quality of life and function Medical Necessity: This case meets standard criteria for surgical intervention based on: * Failure of conservative management Progressive neurological symptoms Functional decline Correlation of imaging findings with clinical presentation Risk of further neurological deterioration without intervention Presence of mechanical back pain with instability Neural compression with documented deficits The proposed minimally invasive approach is appropriate to minimize tissue trauma while achieving necessary decompression and stabilization. The patient understands the risks and benefits of surgery and wishes to proceed with the recommended intervention. Documentation of Medical Necessity for Lumbar Fusion Authorization Patient Identifiers: * Name: Lita Waite Age: 48 Diagnosis: Lumbar herniated disc with stenosis and radiculopathy Proposed Procedure: L5-S1 MIS TLIF Conservative Treatment Documentation: * Duration of Symptoms: * 4+ year history of progressive symptoms Failed minimum 6 months of conservative care Documented progression of symptoms * Non-operative Treatment Trials: * Physical therapy: Documented trial without improvement Medications: * NSAIDs (Celebrex, Ibuprofen) Muscle relaxants (Flexeril) Neuropathic agents (Gabapentin) Anti-inflammatory (Prednisone) Antidepressant (Duloxetine) * Activity modification Home exercise program Alternative therapies * Functional Impairment Documentation: * VAS pain score: 10/10 Multiple falls due to leg weakness Difficulty with position changes Impaired daily activities Progressive neurological decline Clinical Criteria Meeting Insurance Requirements: * Diagnostic Imaging Confirmation: * MRI (06/26/24) showing: * Disc extrusion/protrusion L5-S1 Severe foraminal stenosis Neural compression * CT (08/17/24) confirming: * Structural pathology Foraminal compromise Facet arthropathy * Neurological Deficits: * Objective weakness (4/5) in multiple muscle groups Positive straight leg raise Decreased reflexes Dermatomal sensory changes Documented radiculopathy * Fusion Indicators: * Mechanical back pain Structural instability Neural compression requiring facetectomy Failed conservative management Progressive symptoms Insurance-Specific Criteria Met: * Documentation of: * Minimum 6 months conservative care Failed PT/rehabilitation Multiple medication trials Progressive symptoms Correlation of imaging with symptoms Neurological deficits Functional impairment * Absence of Contraindications: * Non-smoker No active substance use No untreated mental health conditions No active infections Appropriate BMI for surgical intervention * Surgical Plan Appropriateness: * Single-level fusion Minimally invasive approach Addressing documented pathology Appropriate implant selection Quality Measures Documentation: * Preoperative Assessment: * Medical clearance pending Risk assessment completed BMI documented Smoking status verified Medication review completed * Outcome Measures: * Baseline VAS documented Functional status documented Neurological examination detailed Treatment goals established * Patient Education: * Informed consent obtained Alternative treatments discussed Realistic expectations reviewed Post-operative protocol explained Cost-Effectiveness Justification: * Failed conservative measures resulting in: * Ongoing medication costs Multiple provider visits Physical therapy expenses Lost productivity Risk of falls/injury * Progressive Condition: * Risk of further neurological deterioration Potential emergency intervention if untreated Increased disability risk Higher future healthcare utilization * Appropriate Intervention Level: * Single-level procedure Minimally invasive approach Evidence-based technique Standard implant usage This case meets standard insurance criteria for lumbar fusion authorization based on: * Appropriate conservative care trial Documented failure of non-operative treatment Progressive neurological symptoms Corresponding imaging findings Clear functional impairment Absence of contraindications Appropriate surgical plan Cost-effectiveness of intervention The proposed surgery represents the most appropriate and cost-effective long- term solution for this patient's condition, with high likelihood of preventing further deterioration and improving functional status. FOLLOW UP: * post-op PLAN AT NEXT VISIT: * RECHECK PATIENT EDUCATION: Medications Reviewed: YES In our visit today Ms. Waite and I have had a chance to go over my understanding of the patient's current condition, the natural course history without intervention and various interventional options. Questions were invited and answered, and the patient wishes to proceed as outlined above. I will be sure to keep you updated after Ms. Waite returns here for further follow-up. Thank you again for your referral. Please do not hesitate to contact me if you have any further questions. Signed and authenticated by: Garret Hamilton [facility] [address] [place] [id number] . This message is confidential, intended only for the named recipient(s) and may contain information that is privileged or exempt from disclosure under applicable law. If you are not the intended recipient(s), you are notified that the dissemination, distribution or copying of this information is prohibited. If you received this message in error, please notify the sender then delete this message. Past Medical History Past Medical History: Asthma, Musculoskeletal Disorder Additional Past Medical History / Comment(s): chronic back pain, childhood asthma-doens't have anymore History of Any Multi-Drug Resistant Organisms: None Reported Past Surgical History: Orthopedic Surgery Additional Past Surgical History / Comment(s): rt leg surgery due to dog bite- had cellulitis & surgery, multiple D&C's, ectopic surg., surgery for "double uterus"-"extra tissue removed" Past Anesthesia/Blood Transfusion Reactions: No Reported Reaction Additional Past Anesthesia/Blood Transfusion Reaction / Comment(s): no transfusion reactions Smoking Status: Current every day smoker - Past Family History Father Family Medical History: Deep Vein Thrombosis (DVT) Medications and Allergies Home Medications Medication Instructions Recorded Confirmed Type Cariprazine HCl [Vraylar] 1.5 mg PO HS 10/05/24 10/05/24 History OLANZapine [ZyPREXA] 0.5 mg PO HS 10/05/24 10/05/24 History Allergies Allergy/AdvReac Type Severity Reaction Status Date / Time Penicillins Allergy Nausea & Verified 10/05/24 11:21 Vomiting Physical Examination Osteopathic Statement: *. No significant issues noted on an osteopathic structural exam other than those noted in the History and Physical/Consult.
[~2024-10-10 08:25] MED LIST: TRANEXAMIC 1,000 MG/100ML-NACL 1,000 MG in SALINE 1 100ML.BAG IVPB PRN
[2024-10-10] MEDS: IV FLUID CONTINUATION 1,000 ML IV ONE ×4 (09:35→12:49)
[2024-10-10] MEDS: LACTATED RINGERS 1,000 ML IV SCH (09:37)
[2024-10-10] MEDS: ACETAMINOPHEN TAB 500 MG TAB PO PRN (09:42)
[2024-10-10] MEDS: GABAPENTIN 300 MG CAP PO PRN (09:43)
[2024-10-10] MEDS: MIDAZOLAM 2 MG/2 ML VIAL IV PRN (09:44)
[2024-10-10] MEDS: ONDANSETRON 4 MG/2 ML VIAL IVP PRN (09:44)
[2024-10-10] MEDS: fentaNYL (PF) 50 MCG/ML 2 ML AMP IVP PRN (09:45)
--- NOTE | 2024-10-10 10:42 | P.PN ---
Progress Note - Text Progress Note Date: 10/10/24 History and Physical UPDATE I have seen and examined the patient and reviewed the history and physical. There appear to be no significant changes in the patient's current medical status as outlined in the current History and Physical. SHE IS HAVING MORE LEFT LEG PAIN TODAY THE PAIN HAS MIGRATED FOR HER SIGNIFICANTLY. WE WILL ADDRESS THIS APPROPRIATELY DURING SURGERY. SHE UNDERSTANDS AND IS COMFORTABLE. CONSENT UPDATED. SITE MARKED. SHE IS READY AND WILLING TO PROCEED.
[2024-10-10] MEDS ORDERED: MIDAZOLAM 2 MG/2 ML VIAL ONE (13:02)
[2024-10-10] MEDS ORDERED: PHENYLEPHRINE-0.9% NACL SYG 1,000 MCG/10 ML SYRINGE ONE (13:02)
[2024-10-10] MEDS ORDERED: fentaNYL (PF) 50 MCG/ML 2 ML AMP ONE (13:02)
[2024-10-10] MEDS ORDERED: SUCCINYLCHOLINE CHLORIDE 200 MG/10 ML VIAL IV ONE (13:02)
[2024-10-10] MEDS ORDERED: LIDOCAINE 1% INJ 10MG/ML (20 ML MDV) ONE (13:02)
[2024-10-10] MEDS ORDERED: ROCURONIUM 10 MG/ML (5 ML VIAL) IV ONE (13:02)
[2024-10-10] MEDS ORDERED: KETOROLAC 15 MG/ML 1 ML VIAL ONE (13:02)
[2024-10-10] MEDS ORDERED: HYDROmorphone (PF) 1 MG/ML ONE (13:02)
[2024-10-10] MEDS ORDERED: TRANEXAMIC 1,000 MG/100ML-NACL PREMIX BAG ONE (13:02)
[2024-10-10] MEDS ORDERED: PROPOFOL 10 MG/ML 20 ML VIAL IV ONE (13:02)
[2024-10-10] MEDS: LACTATED RINGERS 1,000 ML IV ONE (13:32)
[2024-10-10] MEDS: THROMBIN (BOVINE) 5,000 UNIT VIAL TOPICAL ONE (13:45)
[2024-10-10] MEDS: LIDOCAINE 2%-EPI 1:100,000 20 ML VIAL SQ ONE ×2 (14:22→15:29)
[2024-10-10] MEDS: BUPIVACAINE (PF) 0.5% 30 ML VIAL SQ ONE ×2 (14:22→15:29)
--- NOTE | 2024-10-10 15:52 | P.OP ---
Date of Procedure: 10/10/24 Preoperative Diagnosis: 1. L5-S1 SPONDYLOSIS, WITH SEVERE STENOSIS AND RADICULOPATHY 2. LE RADICULOPATHY 3. LE WEAKNESS 4. LOW BACK PAIN Postoperative Diagnosis: 1. L5-S1 SPONDYLOSIS, WITH SEVERE STENOSIS AND RADICULOPATHY 2. LE RADICULOPATHY 3. LE WEAKNESS 4. LOW BACK PAIN Procedure(s) Performed: 1. L5-S1 POSTEROLATERAL AND INTERBODY FUSION 2. L5-S1 INSTRUMENTATION 3. L5-S1 BILATERAL LAMINECTOMY, COMPLETE FACETECTOMY AND FORAMINOTOMY FOR C OMPLETE NEURAL DECOMPRESSION, DISC PREPARATION AND CAGE PLACEMENT 4. INSERTION OF BIOMECHANICAL DEVICE L5-S1, CAGE x1 5. USE OF Trapster NAVIGATION FOR THE ASSISTANCE IN ACCURATE SCREW PLACEMENT USE OF IONM ALL SCREWS TESTING > 25mA USE OF IO MICROSCOPE Implants: NUZHAT EVEREST RODS AND SCREWS GLOBUS CAGES SABLE CAGE 10MM 15 DEG LONG CONTOUR, MAGNATOS, AUTOGRAFT, ALLOGRAFT, ARTHROCELL, ALLOCELL Anesthesia: GETA Surgeon: Garret Valadez Locomotive Firer/Fireman #1: Dennys Titus (WAS PRESENT AND ASSISTED WITH ALL ASPECTS OF THE CASE FROM POSITION TO DRESSING PLACEMENT) Estimated Blood Loss (ml): 75 IV fluids (ml): 1,500 Urine output (ml): 250 Pathology: none sent Condition: stable Disposition: PACU Indications for Procedure: Lita Waite is a 49 year old female presenting for evaluation of sudden onset of severe lower extremity pain weakness difficulty with ambulation. It was my pleasure to have seen and examined Ms. Waite. In our visit today we have had a chance to go over subjective complaints, physical examination findings and treatments, including the natural course history without intervention and various interventional options. The imaging demonstrates severe spondylosis with disc collapse and disc degeneration height loss noted complete changes disc osteophyte complex right paracentral herniation causing severe foraminal and moderate central as well as lateral recess stenosis L5-S1. . On physical exam, Ms. Waite demonstrates severe low back pain and axial as well as lower extremity radiculopathy lower extremity weakness progressive changes in lower extremity radiculopathy and weakness.. I explained to the patient that as her condition progresses it could cause Continued symptoms progressive symptoms neurologic progression . At this time, based on the patients imaging and physical exam, I recommend surgery in the form or a: L5-S1 minimally invasive posterior lateral and interbody fusion, right . I discussed the risk and benefits of this procedure at length with Ms. Waite. The patient agreed to consider pursuing the procedure mentioned above. Plan: 1. L5-S1 minimally invasive posterior lateral and interbody fusion Description of Procedure: L5-S1 MIS POSTEROLATERAL AND INTERBODY FUSION The patient was seen and examined in the preoperative area. All preoperative protocols were followed. Informed consent was obtained risks and benefits of the procedure were discussed at length. Risks including bleeding infection damage to the surrounding tissue and risk of reoperation were discussed with the patient. Risk of anesthesia up to and including was a discussed with the patient. These are outlined in the risk review. They were willing to accept these risks and all the risks of surgery. The patient was given a weight-based dose of antibiotics in the form of 2 g Ancef. The patient was seen and e valuated by the anesthesia team who deemed them fit for surgery. The site was marked, the patient was willing to proceed with the procedure. The patient was transferred to the operative suite by the Department of anesthesia. They were then drifted off to sleep by the department anesthesia and GETA was performed. The patient tolerated this well. Barney catheter was placed by nursing staff, a-traumatically. Once confirmation of lines and ventilation the patient was transferred to a prone Bruno table very carefully. All bony prominences including wrists, elbows, axilla, chest, hips, and thighs, and feet were padded very well. Special attention was paid to the genitalia, and these were padded accordingly. SCDs were placed on bilateral lower extremities and were connected. Arms were well padded and placed on arm boards up and out in the 90/90 position. Once in position, again we confirmed good ventilation capabilities and that lines were running appropriately. The patients Lumbar spine was then exposed. 1010s were placed outlining the incision site. Standard alcohol was used to clean the incision site and allowed to dry. C-arm was used to needle localize the pedicles at L5-S1 and bio-neto the patient and confirm level for incision which was marked with a skin marker. Operative briefing was performed with all teams and everyone in agreement to proceed. The patient was then prepped and draped in a normal sterile fashion. Timeout was then performed, and all parties agreed with the procedure to be performed. Spinal needle was used to localize L5-S1 interspace again on the right. Skin incision made and sequential dilation done for tubular retractor under AP and LAT imaging. Once in place it was secured to the table with arm. Tubular retractor system was placed at the interspace of L5-S1 using biplanar c arm on the left. Once in position and dilated up to 26mm tube it was locked to the bed and confirmed in good position. Microscope was then brought in for visualization. Once in position limited myomectomy done and facet joints and lamina identified. Laminectomy, facetectomy and foraminotomy then done with high speed rick, kerrison, pituitary and curettes. Meticulous hemostasis done and disc space accessed with osteotome under lateral fluoro. Disc cleared from the area. Further decompression done and exiting and traversing roots were clear. Irrigation then done and tubular retractor removed under direct visualization. Attention was then turned to interbody fusion at L5-S1 on the left. Tubular retractor system was placed at the interspace of L5-S1 using biplanar c arm on the left. Once in position and dilated up to 26mm tube it was locked to the bed and confirmed in good position. Microscope was then brought in for visualization. Limited myomectomy was performed and laminectomy, complete facetectomy and foraminotomy performed at L5-S1 using high speed rick and Kerrison rongure. The ligamentum was removed and dural sac decompressed. Exiting and traversing roots visualized and decompressed. Neural elements were then protected, and disc space accessed with an osteotome. Sequential shaving then done under lateral imaging and complete discectomy performed using yury, pituitary and curette. Once good bleeding endplates accomplished and good height confucianist with trials, a combination of autograft, allograft and synthetic placed anterior in the disc space. The cage was then selected and impacted into place under lateral imaging. The cage was then expanded restoring height, lordosis and alignment. The cage was backfilled with bone graft through a funnel. The aeronautical drafter removed and area inspected. Good cage placement, stable cage and no injuries. Area was irrigated copiously, and meticulous hemostasis achieved. The tubular retractor was then removed under direct visualization. Skin nicks were then made for the trackin pins over the PSIS on the right. [employer] major tracker placed. Z-drape placed and a 3D C arm spin was done and registered with major. This was confirmed to be accurate. Once confirmed it was then used to target pedicles bilaterally at L5-S1. Navigated rick was used to make starting points followed by navigated Awl-tap and screw measurement was done. A navigated screw dedicated intermodal truck driver was then used to placed the measured screw in position. Once this was done, AP and LAT confirmed good placement of screws. Screws were then tested and all tested > 20 mA. Raymond length was then measured, and rods selected. They were then placed through the MIS tabs, subfascial. These were then locked into place with set screws and final tightened. Raymond holders removed and images taken showing good placement of rods good lordosis and confucianist of height. Tabs were broken off. Wounds were then copiously irrigated with NSS. [place] used for TP decortication and mixture of MagnatOs, allograft and autograft packed posterolateral. Facia was then closed with 0 Vircyl. Deep subq closed with 0 Vicryl. Superficial subq closed with 2-0 Vicryl and skin with karlene. Wound edges approximated very well. Wound was then cleaned with alcohol and dried. Wounds dressed in Optifoam dressings. The patient was then transferred off the table back to their hospital bed a- traumatically. They were extubated by the department of anesthesia. They were then transferred to PACU in stable condition having tolerated the procedure with no complications.
[2024-10-10] MEDS ORDERED: MAGNESIUM HYDROXIDE 2,400 MG/30 ML CUP PO PRN (15:59)
[2024-10-10] MEDS ORDERED: bisacodyL 10 MG SUPP RECTAL PRN (15:59)
[2024-10-10] MEDS ORDERED: HYDROmorphone 1 MG/ML 1 ML SYRINGE IVP PRN (15:59)
[2024-10-10] MEDS ORDERED: NA PHOS,M-B/NA PHOS,DI-BA 133 ML ENEMA RECTAL PRN (15:59)
[2024-10-10] MEDS ORDERED: ONDANSETRON 4 MG/2 ML VIAL IVP PRN (15:59)
[2024-10-10] MEDS ORDERED: oxyCODONE-APAP 10-325MG 1 EACH TAB PO PRN (16:04)
[2024-10-10] MEDS: HYDROmorphone 0.5 MG/0.5 ML SYRINGE IVP PRN (16:06)
--- NOTE | 2024-10-10 16:07 | FL ---
EXAMINATION TYPE: FL guidance operating room, XR lumbar spine 2 or 3V DATE OF EXAM: 10/10/2024 3:56 PM COMPARISON: Pre Operative Images if available both CT/MRI or plain film CLINICAL INDICATION: Female, 49 years old with history of MIN INVASIVE LUMBAR FUSION; TECHNIQUE: FL guidance operating room, XR lumbar spine 2 or 3V, multiple fluoroscopic images provided for procedure. Total fluoroscopy time: 1 min Total submitted images to PACS: 4 DAP: 1080.86 mGym2 Gycm2 uGym2 cGycm2 or equivalent. FINDINGS: Fluoroscopic images during internal fixation/arthroplasty demonstrate hardware in appropriate positio n. Hardware appears intact. No immediate complication identified. IMPRESSION: 1. No evidence for intraoperative complication. 2. Please see the operative/procedural note for further details. [facility], Workstation: [facility], 10/10/2024 4:05 PM
[2024-10-10] MEDS: KETOROLAC 15 MG/ML 1 ML VIAL IVP SCH (17:40)
[2024-10-10] MEDS: ACETAMINOPHEN TAB 325 MG TAB PO SCH (17:40)
[2024-10-10] MEDS: 0.9% NACL WITH KCL 20 MEQ/L 1,000 ML IV SCH (18:07)
[2024-10-10] MEDS ORDERED: NALOXONE 0.4 MG/ML 1 ML VIAL IVP PRN (20:13)
--- NOTE | 2024-10-10 20:54 | P.CONS ---
History of Present Illness - Reason for Consult Consult date: 10/10/24 Medical management - Chief Complaint Medical management - History of Present Illness Patient is a 49-year-old female with past medical history of asthma, chronic back pain is seen in the postsurgical pringle for medical management status post L5-S1 minimally invasive posterior lateral and interbody fusion on 10/10/2024. Per orthopedic H&P, patient described a severe constant sharp and throbbing l umbar pain that has been progressing over the last 4 years. Patient also reported the lumbar pain would radiate into bilateral lower extremities into her toes. Patient has previously tried Celebrex without resolution of her symptoms. Patient underwent surgery on 10/10/2024 without intraoperative complications. Estimated blood loss of 75 mL. Patient currently reports postsurgical soreness in the lumbar region. Denies any pain in the lower extremity bilaterally. Denies any tingling or numbness or weakness sensation in the lower extremities. Patient denies fever, chills, shortness of breath, chest pain, nausea, vomiting, belly pain, urinary incontinence or fecal incontinence, lower extremity weakness, tingling, numbness sensation. Vitals on admission temperature 97.3, heart rate 85, blood pressure 107/65, respiratory rate 17, O2 saturation at 95% on nasal cannula 2 L/min Lumbar spine x-ray showed no evidence for intraoperative complication, fluoroscopic images during internal fixation/arthroplasty demonstrate hardware in appropriate position. Review of systems: Pertinent positives and negatives as discussed in HPI, a complete review of systems was performed and all other systems are negative. PMH: Childhood history of asthma, chronic back pain PSH: Right leg surgery due to by dog bite had cellulitis and surgery, multiple D&Cs, ectopic surgery, surgery for "double uterus""extra tissue removed" FMH: Father had a history of DVT Allergies: Penicillins Social history: Tobacco: Currently everyday smoker, smokes half a pack per day since teens Alcohol: None reported Recreational drugs: Marijuana Travel: No recent travel history Sick contacts: No recent sick contacts Physical examination: Vital signs reviewed General: nontoxic, no distress, appears at stated age, well-appearing Derm: warm, dry, intact Head: atraumatic, normocephalic, symmetric Eyes: EOMI, anicteric sclera Mouth: no lip lesion, mucus membranes moist Cardiovascular: S1 S2 reg, no murmur Lungs: CTA bilateral, no rhonchi, no rales, no accessory muscle use Abdominal: soft, non-tender to palpation Extremities: No cyanosis, clubbing, or pedal edema. Musculoskeletal: Wound dressing noted in the lumbar region with no signs of erythema, drainage, infection, bleeding Neuro: Alert, Oriented, Gross neurological examination did not reveal any focal deficits. Intact bilateral upper and lower extremity muscle strength 5 out of 5. Cranial nerves II to XII grossly intact. Intact sensation in the upper and lower extremity bilaterally. Psych: well appearing, appropriate affect Assessment/Plan: Patient is a 49-year-old female with past medical history of childhood asthma, chronic back pain seen in the postsurgical pringle for medical management status post L5-S1 minimally invasive posterior lateral and interbody fusion on 10/10/2024. Patient is consulted for medical management post surgery. Active: #. Bipolar disorder Restart home medications Vraylar 1.5 mg and olanzapine 0.5 mg #. Status post L5-S1 minimally invasive posterior lateral and interbody fusion on 10/10/2024 Defer pain management and DVT prophylaxis to orthopedic surgery check CBC , CMP in the morning CODE STATUS: Full code Discussed with: Dr. Trina wu from medical standpoint I have seen and evaluated the patient today. I Discussed the case with the resident and agree with the resident's findings I edited the assessment and plan as necessary as documented in the resident's note. Past Medical History Past Medical History: Asthma, Musculoskeletal Disorder Additional Past Medical History / Comment(s): chronic back pain, childhood asthma-doens't have anymore History of Any Multi-Drug Resistant Organisms: None Reported Past Surgical History: Orthopedic Surgery Additional Past Surgical History / Comment(s): rt leg surgery due to dog bite- had cellulitis & surgery, multiple D&C's, ectopic surg., surgery for "double uterus"-"extra tissue removed" Past Anesthesia/Blood Transfusion Reactions: No Reported Reaction Additional Past Anesthesia/Blood Transfusion Reaction / Comm: no transfusion reactions Smoking Status: Current every day smoker - Past Family History Father Family Medical History: Deep Vein Thrombosis (DVT) Medications and Allergies Home Medications Medication Instructions Recorded Confirmed Type Cariprazine HCl [Vraylar] 1.5 mg PO HS 10/05/24 10/05/24 History OLANZapine [ZyPREXA] 0.5 mg PO HS 10/05/24 10/05/24 History Allergies Allergy/AdvReac Type Severity Reaction Status Date / Time Penicillins Allergy Nausea & Verified 10/10/24 09:20 Vomiting Physical Exam Vitals: Vital Signs Temp Pulse Resp BP BP Pulse Ox 10/10/24 18:15 85 107/65 10/10/24 18:00 88 98/58 95 10/10/24 17:45 92 109/64 96 10/10/24 17:30 97.3 F L 84 17 112/73 98 10/10/24 17:05 87 16 103/52 95 10/10/24 16:50 89 11 L 118/55 98 10/10/24 16:35 90 11 L 133/63 100 10/10/24 16:20 96 16 125/72 98 10/10/24 16:05 86 16 130/79 98 10/10/24 15:54 85 12 120/87 93 L 10/10/24 09:55 81 14 99/54 96 10/10/24 09:17 97.0 F L 75 16 118/59 98 Intake and Output 10/10/24 10/10/24 10/10/24 06:59 14:59 22:59 Intake Total 3150 0 Output Total 825 Balance 3150 -825 Intake: IV 3150 0 Output: Urine 750 Estimated Blood Loss 75 Other: Weight 89.6 kg 89.6 kg
[2024-10-10] MEDS: CYCLOBENZAPRINE 10 MG TAB PO PRN (20:58)
[2024-10-10] MEDS: GABAPENTIN 300 MG CAP PO SCH (20:58)
[2024-10-10] MEDS: HYDROcodone/APAP 10-325MG 1 EACH TAB PO PRN (20:58)
[2024-10-10] MEDS: NON FORMULARY DRUG (Cariprazine Hcl [Vraylar] 1.5 MG Capsule) PO SCH (21:17)
[2024-10-11] MEDS: SENNOSIDES-DOCUSATE SODIUM 1 EACH TAB PO SCH (08:32)
[2024-10-11] MEDS: polyethylene glycoL 3350 17 GM POWD.PACK PO SCH (08:34)
[2024-10-11 08:59] LABS: Basophils # (A) 0.06 X 10*3/uL (0.00-0.10); Basophils % (A) 0.7 %; Eosinophils # (A) 0.27 X 10*3/uL (0.04-0.35); Eosinophils % (A) 2.9 %; HCT 34.2 % (37.2-46.3); HGB 10.8 g/dL (12.0-15.0); Lymphocytes # (A) 3.15 X 10*3/uL (0.90-5.00); Lymphocytes % (A) 34.2 %; MCH 31.4 pg (27.0-32.0); MCHC 31.6 g/dL (32.0-37.0); MCV 99.4 FL (80.0-97.0); Mean Platelet Volume 10.8 FL (9.5-12.2); Monocytes # (A) 0.67 X 10*3/uL (0.20-1.00); Monocytes % (A) 7.3 %; NRBC Per 100 WBC 0 X 10*3/uL (0.00-0.01); Neutrophils # (A) 5.01 X 10*3/uL (1.80-7.70); Neutrophils % (A) 54.4 %; Platelet Count 221 X 10*3/uL (140-440); RBC 3.44 X 10*6/uL (4.10-5.20); RDW 15.3 % (11.5-14.5); WBC 9.21 X 10*3/uL (4.50-10.00)
[2024-10-11 09:33] LABS: BUN/Creat Ratio 16.82 Ratio (12.00-20.00); Blood Urea Nitrogen 18.5 mg/dL (9.0-27.0); Calcium 8.1 mg/dL (8.7-10.3); Carbon Dioxide 23.7 mmol/L (21.6-31.8); Chloride 105 mmol/L (96-109); Glucose 104 mg/dL (70-110); Potassium 4.5 mmol/L (3.5-5.5); Sodium 139 mmol/L (135-145)
--- NOTE | 2024-10-11 10:10 | P.PN ---
Subjective Progress Note Date: 10/11/24 Principal diagnosis: Status post MIS L5-S1 posterior lateral interbody fusion Patient evaluated at bedside today, she is doing very well. She has been up and ambulating with minimal assistance. We are working on getting her an LSO brace. She has been urinating with no issues. She does note some tightness in the left lower extremity but very minimal back pain at this time. She denies headaches, lightheadedness, chest pain or shortness of breath Objective - Vital Signs Vital signs: Vital Signs Temp 98.1 F 10/11/24 07:00 Pulse 75 10/11/24 07:00 Resp 20 10/11/24 07:00 BP 105/65 10/11/24 07:00 Pulse Ox 98 10/11/24 07:00 FiO2 Intake & Output 10/10/24 10/11/24 10/11/24 18:59 06:59 18:59 Intake Total 3150 Output Total 825 400 Balance 2325 -400 Weight 89.6 kg Intake: IV 3150 Output: Urine 750 400 Uretheral (Barney) 400 Estimated Blood Loss 75 Other: Voiding Method Indwelling Catheter - Exam Gen: AOx3, NAD VSS stable at this time Integument: Postop dressing is in good position condition Palpation: Mild tenderness with palpation to the lower lumbar spine ROM: Full range of motion in all major muscle groups of the bilateral upper and lower extremities Sensory Exam: Senory exam to light touch is intact C5-T1 Senosry exam to light touch is intact L2-S1 Motor: 5/5 strength in the bilateral upper extremities with shoulder elevation, shoulder abduction, elbow extension, elbow flexion, wrist extension, wrist flexion, director of staff development 4+/5 strength appreciated bilateral lower extremities with hip flexion, knee extension, knee flexion, plantarflexion, dorsiflexion, EHL, FHL Reflexes: 2/4 in all UE and LE Negative Dion's bilaterally Negative clonus bilaterally - Labs CBC & Chem 7: 10/11/24 04:17 10/11/24 04:17 Labs: Abnormal Lab Results - Last 24 Hours (Table) 10/11/24 10/11/24 Range/Units 04:17 04:17 RBC 3.44 L (4.10-5.20) X 10*6/uL Hgb 10.8 L (12.0-15.0) g/dL Hct 34.2 L (37.2-46.3) % MCV 99.4 H (80.0-97.0) FL MCHC 31.6 L (32.0-37.0) g/dL RDW 15.3 H (11.5-14.5) % Immature Gran # 0.05 H (0.00-0.04) X 10*3/uL Calcium 8.1 L (8.7-10.3) mg/dL Assessment and Plan Assessment: Postoperative day #1 status post MIS L5-S1 posterior lateral interbody fusion Plan: Pain control, plan for discharge with oral medication LSO brace was ordered and discussed with case management, this will be fitted prior to discharging. She will utilize this for longer distance walking Home PT/nursing after discharge Dressing instructions discussed, she will remove postop dressing tomorrow and begin to shower directly via the incision. No soaking, this to include pools and hot tubs No bending, lifting or twisting Medical recommendations appreciated Discharge planning: Patient will be discharged home later today Time with Patient: Less than 30
--- NOTE | 2024-10-11 10:15 | P.DS ---
Providers Date of admission: 10/10/2024 Expected date of discharge: 10/11/24 Attending physician: Garret Valadez DO Consults: 10/10/24 16:04 Consult Physician Routine Consulting Provider: Delmar Justice Consult Reason/Comments: Medical Management Do you want consulting provider notified?: Yes Primary care physician: Jeana Gaona [facility] Course: Date of admission: 10/10/2024 Date of discharge: 10/11/2024 Admission diagnosis: Status post MIS L5-S1 decompression and posterior lateral interbody fusion Discharge diagnosis: Same Attending physician: Dr. 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 At this point patient has failed conservative treatment measures and has opted to proceed with a elective MIS L5-S1 decompression and posterior lateral interbody fusion. Hospital course: Details of patient's surgery can be found in operative report. Patient tolerated the procedure well and was subsequently transported to orthopedic floor. Patient's orthopeidc and medical care was provided daily. Patient had daily laboratory tests performed for evaluation of overall blood counts. Patient had daily physical therapy to include strengthening range of motion as well as education with walker ambulation. Patient was treated with compression stockings and MICHAEL hose for their postoperative DVT prophylaxis during their inpatient stay. Patient was noted to have a relatively uneventful postoperative course. Patient reported satisfactory pain control with oral pain medications by postoperative day 1. Patient showed satisfactory progress with physical therapy. Patient moved steadily through the program and had no difficulty meeting the goals by postoperative day 1. Given patient's otherwise satisfactory course and having met physical therapy goals, plan is to discharge patient [home] on postoperative day 1. Discharge condition/disposition: Patient will be discharged [home] in stable condition. Discharge medications: Instructions are given on resumption of patient's normal daily medications per primary care recommendation, in addition patient will be prescribed Hazen 10 mg / 325 mg, gabapentin 300 mg, Duricef 500 mg, senna S. Spine Discharge and Recovery Instructions Medications: See medication list All medication refills should be obtained through your primary care doctor or your clinic spine surgeon. Please discuss prescription refills at your follow up appointment. Do not call the hospital for medication refills. Dressing: Leave your dressing in place for a total of 5 days post operatively. Then you may remove your dressing and leave open to air. Keep the area clean and if not able to keep area clean, then cover with sterile gauze and tape. Showering: You may shower 3 days after your procedure allowing soap and water to run over incision. Do not scrub. Do not soak. Blot dry. Follow up: Please confirm a follow up appointment with your surgeon 3 weeks post operatively. Please make an appointment to follow up with your PCP in 1-2 weeks after surgery for evaluation '3 phase, 3-week plan' POST OP WEEKS 1-3 1. Lifting/carrying/pushing/pulling limited to less than 5 pounds. 2. Do not sit for longer than 15 minutes at one time. Get up and walk around. Prolonged sitting is NOT advised. If you lay down, see if you can tolerate laying down on you front (belly side) 3. Walk for periods of 15 minutes = 1 mile but no longer; do it multiple times times each day. 4. Ice your low back after activity. POST OP WEEKS 3-6 1. Lifting limited to less than 20 pounds. 2. Do not sit for longer than 30 minutes at a time. Frequently change positions. Use a sit-to stand workstation or take frequent breaks from sitting if you have returned to work. 3. Walk for 30 minutes each day. If possible, do these three or more times a day POST OP WEEKS 6+ At your 6-week appointment we will give you a physical therapy referral to focus on a core stabilization and strengthening program. You should also work on leg & buttock strengthening, hamstring & quadriceps stretching, and continue a low impact aerobic activity program such as swimming, walking, or riding a stationary bicycle. During the initial 6 weeks after your surgery, you are at the highest risk of re-injuring your spine. You should generally avoid BLT's (bending, lifting and twisting combination motions) and follow the above guidelines to reduce the chance of reinjury. You can anticipate post op appointments in our office at approximately 3 weeks and 6 weeks after your surgery. INCISION CARE: If your incision is not draining you do NOT need to cover it with a dressing. Keep your incision clean, dry and intact. In most cases, we apply skin glue, karlene or sutures to the incision at the time of surgery. This will be like a crust or have the appearance of a scab and will fall off in time on its own. The stitches or karlene need to be removed at 3 weeks post op appointment. You may begin to shower 3 days after surgery (this allows the glue to farmer well). However, please avoid scrubbing the incision site or peeling off any of the skin glue. This will ensure optimal healing of your incision. Also, during this time avoid soaking the incision area in water - this includes swimming pools, hot tubs or baths. No ointments, lotions or oils on the incision until your surgeon allows. Leave karlene, sutures or glue in place. Neurological dysfunction that comes on suddenly can also be a sign of a stroke. Below some common symptoms of a stroke are listed: B - balance difficulty such as sudden onset walking or leaning to one side - NEW E - eye problem such as sudden double vision or trouble seeing on one side - NEW F - Facial weakness or numbness on one side - NEW A - Arm or leg weakness or numbness on one side - NEW S - Slurred speech or difficulty with word finding - NEW T - Time is BRAIN! Call 911 as soon as you recognize these symptoms Diet: Consume a regular diet rich in vegetables and lean protein such as chicken or fish. You should consume in a ratio of approximately 20% fats|40% carbohydrates|40%protein. Vegetables, sweet potatoes, brown rice or quinoa are examples of good carbohydrates. Chips, white bread, cookies and sweets/sugar are examples of bad carbohydrates. Limit your bad carbs, go wild with good carbs. "Life's Simple 7" Guidelines as per [place] [employer] These will help you reclaim your life after surgery and plating department helper in your recovery, keeping in mind your restrictions. (1) Get Active. Physical activity can help people lose weight, control high blood pressure and cholesterol, feel emotionally better, and sleep better. (2) Control Cholesterol. Avoid a diet high in saturated fat, trans fat, & cholesterol. Limit whole milk & cream, ice cream, butter, egg yolks, processed meats (like sausage and hot dogs), and fatty meats. Choose healthy foods that are low in saturated fat, trans fat and cholesterol which include: Fruits and vegetables, fiber rich grain products (like whole grain pasta and brown rice), lean meat such as chicken, fish, nuts, seeds, and legumes. (3) Eat Better. Eat small portions. Shop at the grocery with a list and do not stray from it. Tips for a healthy diet include: Limit sodium intake to less than 1500mg daily, avoid prepackaged, processed, and fast foods, choose a diet rich in fruits, vegetables, and whole grain, high fiber foods, and limit saturated & cholesterol in your diet. (4) Manage Blood Pressure. If you have high blood pressure, you should have a cuff at home so that you can check your blood pressure regularly. Be sure you have a good cuff. An arm one is generally better than a wrist one. Bring the cuff to a doctor's appointment to validate that the measurements that your cuff are taking are accurate. Take your blood pressure twice daily when you are sitting down and relaxing. Record the numbers in a log and bring this log with you to your doctors' appointments. (5) Lose Weight if your BMI is above 25. A healthy BMI is between 19-25. To calculate Your BMI, you may use a Standard BMI Calculator on the NIH BMI website: <www.nhlbi.nih.gov/guidelines/obesity/BMI/bmicalc.htm>. Weigh oneself daily. If you are overweight, set a goal to lose weight. A pound a week loss if needed is a good target. (6) Reduce Blood Sugar. Limit foods and liquids with "added sugars." (Added sugars include sucrose, fructose, glucose, maltose, dextrose, high fructose corn syrup, corn syrup, concentrated fruit juice and honey). (7) Stop Smoking. If you smoke, quitting smoking is one of the best things that you can do for your health. Smoking increases your risk of heart attack, stroke, and peripheral vascular disease, which is a build-up of plaque in your arteries. Please discard all the cigarettes and lighters in your house. Have a plan for what you will do when you have the urge to smoke. Direct and second- hand smoke shortens your life as well as the lives of your family, friends and others around you. For your health and the health of those around you, please consider quitting! Proper Bending Body Mechanics: Maintain a wide stance with one foot slightly in front of the other. Keep your back straight. Bend utilizing the strength in your hips and knees. Do not bend at the waist. Maintain the lifted object at your waist-level close to your body. Avoid lifting weight that causes immediately pain or pain anywhere in the body afterwards. Smoking/Nicotine If there was ever one thing that you could do to increase your overall health, decrease your risk of cardiovascular problems by about 39% the second you make the choice, it is to STOP SMOKING. Your body's most instant gratification is the second you stop smoking. We have all heard the studies, read the articles but it is true, smoking is extremely bad for your overall health, and moreover it is detrimental to your bone health. Nicotine, IN ANY FORM, kills bone cells, prevents your body from healing fractures, and significantly prolongs healing after surgery. In spine surgery specifically, it increases your risk of not healing your bones to create a fu kings and increases your risk of having a revision surgery due to this up to 60%. I know it is hard. I know it feels impossible. But there are ways. Take control of your life. We are here to help you through it. And when you are ready, ask us and we can direct you to help if you desire. Use the START Plan to Quit Smoking (please visit the Helpguide.org website listed below for more information): S = Set a quit date. Choose a date within the next 2 weeks, so you have enough time to prepare without losing your motivation to quit. If you mainly smoke at work, quit on the weekend, so you have a few days to adjust to the change. T = Tell family, friends, and co-workers that you plan to quit. Let your friends and family in on your plan to quit smoking and tell them you need their support and encouragement to stop. Look for a quit titus who wants to stop smoking as well. You can help each other get through the rough times. A = Anticipate and plan for the challenges you'll face while quitting. Most people who begin smoking again do so within the first 3 months. You can help yourself make it through by preparing ahead for common challenges, such as nicotine withdrawal and cigarette cravings. R = Remove cigarettes and other tobacco products from your home, car, and work. Throw away all your cigarettes (no emergency pack!), lighters, ashtrays, and matches. Wash your clothes and freshen up anything that smells like smoke. Shampoo your car, clean your drapes and carpet, and steam your furniture. T = Talk to your doctor about getting help to quit. Your doctor can prescribe medication to help with withdrawal and suggest other alternatives. If you can't see a doctor, you can get many products over the counter at your local pharmacy or grocery store, including the nicotine patch, nicotine lozenges, and nicotine gum. Resources for Quitting Smoking: <https://www.[place].gov/documents/[facility]/Quit_Tobacco_Resources_for_patients_3 13480_7.pdf> Supplementation: Take recommended dosages of Vitamin D and Calcium to help fortify your bones and help them to heal. See your health maintenance packet for dosages and recommen ded levels. DVT/VTE prophylaxis: You will be given compression stockings from the hospital. Wear these daily for the first two weeks after surgery. You may take them off at night. You may be prescribed a medication to help thin your blood. Take this as directed. If you are not prescribed this medication, early and frequent ambulation has been shown to be the best prophylaxis to deep vein thrombosis and sequelae related to this event. Procedures: MIS L5-S1 posterior lateral interbody fusion and decompression Patient Condition at Discharge: Good Plan - Discharge Summary Discharge Rx Participant: Yes New Discharge Prescriptions: New cefaDROXiL [Duricef] 500 mg PO Q12HR 5 Days #10 cap Gabapentin [Neurontin] 300 mg PO TID 60 Days #15 cap HYDROcodone/APAP 10-325MG [Hazen 10-325] 1 tab PO Q6HR PRN 7 Days #28 tab PRN Reason: Pain Sennosides/Docusate Sodium [Senna-S 8.6-50 mg Tablet] 2 each PO DAILY PRN #30 tablet PRN Reason: Constipation No Action OLANZapine [ZyPREXA] 0.5 mg PO HS Cariprazine HCl [Vraylar] 1.5 mg PO HS Discharge Medication List Cariprazine HCl [Vraylar] 1.5 mg PO HS 10/05/24 [History] OLANZapine [ZyPREXA] 0.5 mg PO HS 10/05/24 [History] Gabapentin [Neurontin] 300 mg PO TID 60 Days #15 cap 10/11/24 [Rx] HYDROcodone/APAP 10-325MG [Hazen 10-325] 1 tab PO Q6HR PRN 7 Days #28 tab 10/11/24 [Rx] Sennosides/Docusate Sodium [Senna-S 8.6-50 mg Tablet] 2 each PO DAILY PRN #30 tablet 10/11/24 [Rx] cefaDROXiL [Duricef] 500 mg PO Q12HR 5 Days #10 cap 10/11/24 [Rx] Follow up Appointment(s)/Referral(s): Garret Valadez DO [Doctor of Osteopathic Medicine] - 10/27/24 8:45 am Activity/Diet/Wound Care/Special Instructions: Spine Discharge and Recovery Instructions Medications: See medication list All medication refills should be obtained through your primary care doctor or your clinic spine surgeon. Please discuss prescription refills at your follow up appointment. Do not call the hospital for medication refills. Dressing: Leave your dressing in place for a total of 5 days post operatively. Then you may remove your dressing and leave open to air. Keep the area clean and if not able to keep area clean, then cover with sterile gauze and tape. Showering: You may shower 3 days after your procedure allowing soap and water to run over incision. Do not scrub. Do not soak. Blot dry. Follow up: Please confirm a follow up appointment with your surgeon 3 weeks post operatively. Please make an appointment to follow up with your PCP in 1-2 weeks after surgery for evaluation '3 phase, 3-week plan' POST OP WEEKS 1-3 1. Lifting/carrying/pushing/pulling limited to less than 5 pounds. 2. Do not sit for longer than 15 minutes at one time. Get up and walk around. Prolonged sitting is NOT advised. If you lay down, see if you can tolerate laying down on you front (belly side) 3. Walk for periods of 15 minutes = 1 mile but no longer; do it multiple times times each day. 4. Ice your low back after activity. POST OP WEEKS 3-6 1. Lifting limited to less than 20 pounds. 2. Do not sit for longer than 30 minutes at a time. Frequently change positions. Use a sit-to stand workstation or take frequent breaks from sitting if you have returned to work. 3. Walk for 30 minutes each day. If possible, do these three or more times a day POST OP WEEKS 6+ At your 6-week appointment we will give you a physical therapy referral to focus on a core stabilization and strengthening program. You should also work on leg & buttock strengthening, hamstring & quadriceps stretching, and continue a low impact aerobic activity program such as swimming, walking, or riding a stationary bicycle. During the initial 6 weeks after your surgery, you are at the highest risk of re-injuring your spine. You should generally avoid BLT's (bending, lifting and twisting combination motions) and follow the above guidelines to reduce the chance of reinjury. You can anticipate post op appointments in our office at approximately 3 weeks and 6 weeks after your surgery. INCISION CARE: If your incision is not draining you do NOT need to cover it with a dressing. Keep your incision clean, dry and intact. In most cases, we apply skin glue, karlene or sutures to the incision at the time of surgery. This will be like a crust or have the appearance of a scab and will fall off in time on its own. The stitches or karlene need to be removed at 3 weeks post op appointment. You may begin to shower 3 days after surgery (this allows the glue to farmer well). However, please avoid scrubbing the incision site or peeling off any of the skin glue. This will ensure optimal healing of your incision. Also, during this time avoid soaking the incision area in water - this includes swimming pools, hot tubs or baths. No ointments, lotions or oils on the incision until your surgeon allows. Leave karlene, sutures or glue in place. Neurological dysfunction that comes on suddenly can also be a sign of a stroke. Below some common symptoms of a stroke are listed: B - balance difficulty such as sudden onset walking or leaning to one side - NEW E - eye problem such as sudden double vision or trouble seeing on one side - NEW F - Facial weakness or numbness on one side - NEW A - Arm or leg weakness or numbness on one side - NEW S - Slurred speech or difficulty with word finding - NEW T - Time is BRAIN! Call 911 as soon as you recognize these symptoms Diet: Consume a regular diet rich in vegetables and lean protein such as chicken or fish. You should consume in a ratio of approximately 20% fats|40% carbohydrates|40%protein. Vegetables, sweet potatoes, brown rice or quinoa are examples of good carbohydrates. Chips, white bread, cookies and sweets/sugar are examples of bad carbohydrates. Limit your bad carbs, go wild with good carbs. "Life's Simple 7" Guidelines as per [place] [employer] These will help you reclaim your life after surgery and plating department helper in your recovery, keeping in mind your restrictions. (1) Get Active. Physical activity can help people lose weight, control high blood pressure and cholesterol, feel emotionally better, and sleep better. (2) Control Cholesterol. Avoid a diet high in saturated fat, trans fat, & cholesterol. Limit whole milk & cream, ice cream, butter, egg yolks, processed meats (like sausage and hot dogs), and fatty meats. Choose healthy foods that are low in saturated fat, trans fat and cholesterol which include: Fruits and vegetables, fiber rich grain products (like whole grain pasta and brown rice), lean meat such as chicken, fish, nuts, seeds, and legumes. (3) Eat Better. Eat small portions. Shop at the grocery with a list and do not stray from it. Tips for a healthy diet include: Limit sodium intake to less than 1500mg daily, avoid prepackaged, processed, and fast foods, choose a diet rich in fruits, vegetables, and whole grain, high fiber foods, and limit saturated & cholesterol in your diet. (4) Manage Blood Pressure. If you have high blood pressure, you should have a cuff at home so that you can check your blood pressure regularly. Be sure you have a good cuff. An arm one is generally better than a wrist one. Bring the cuff to a doctor's appointment to validate that the measurements that your cuff are taking are accurate. Take your blood pressure twice daily when you are sitting down and relaxing. Record the numbers in a log and bring this log with you to your doctors' appointments. (5) Lose Weight if your BMI is above 25. A healthy BMI is between 19-25. To calculate Your BMI, you may use a Standard BMI Calculator on the NIH BMI website: <www.nhlbi.nih.gov/guidelines/obesity/BMI/bmicalc.htm>. Weigh oneself daily. If you are overweight, set a goal to lose weight. A pound a week loss if needed is a good target. (6) Reduce Blood Sugar. Limit foods and liquids with "added sugars." (Added sugars include sucrose, fructose, glucose, maltose, dextrose, high fructose corn syrup, corn syrup, concentrated fruit juice and honey). (7) Stop Smoking. If you smoke, quitting smoking is one of the best things that you can do for your health. Smoking increases your risk of heart attack, stroke, and peripheral vascular disease, which is a build-up of plaque in your arteries. Please discard all the cigarettes and lighters in your house. Have a plan for what you will do when you have the urge to smoke. Direct and second- hand smoke shortens your life as well as the lives of your family, friends and others around you. For your health and the health of those around you, please consider quitting! Proper Bending Body Mechanics: Maintain a wide stance with one foot slightly in front of the other. Keep your back straight. Bend utilizing the strength in your hips and knees. Do not bend at the waist. Maintain the lifted object at your waist-level close to your body. Avoid lifting weight that causes immediately pain or pain anywhere in the body afterwards. Smoking/Nicotine If there was ever one thing that you could do to increase your overall health, decrease your risk of cardiovascular problems by about 39% the second you make the choice, it is to STOP SMOKING. Your body's most instant gratification is the second you stop smoking. We have all heard the studies, read the articles but it is true, smoking is extremely bad for your overall health, and moreover it is detrimental to your bone health. Nicotine, IN ANY FORM, kills bone cells, prevents your body from healing fractures, and significantly prolongs healing after surgery. In spine surgery specifically, it increases your risk of not healing your bones to create a fusion and increases your risk of having a revision surgery due to this up to 60%. I know it is hard. I know it feels impossible. But there are ways. Take control of your life. We are here to help you through it. And when you are ready, ask us and we can direct you to help if you desire. Use the START Plan to Quit Smoking (please visit the Helpguide.org website listed below for more information): S = Set a quit date. Choose a date within the next 2 weeks, so you have enough time to prepare without losing your motivation to quit. If you mainly smoke at work, quit on the weekend, so you have a few days to adjust to the change. T = Tell family, friends, and co-workers that you plan to quit. Let your friends and family in on your plan to quit smoking and tell them you need their support and encouragement to stop. Look for a quit titus who wants to stop smoking as well. You can help each other get through the rough times. A = Anticipate and plan for the challenges you'll face while quitting. Most people who begin smoking again do so within the first 3 months. You can help yourself make it through by preparing ahead for common challenges, such as nicotine withdrawal and cigarette cravings. R = Remove cigarettes and other tobacco products from your home, car, and work. Throw away all your cigarettes (no emergency pack!), lighters, ashtrays, and matches. Wash your clothes and freshen up anything that smells like smoke. Shampoo your car, clean your drapes and carpet, and steam your furniture. T = Talk to your doctor about getting help to quit. Your doctor can prescribe medication to help with withdrawal and suggest other alternatives. If you can't see a doctor, you can get many products over the counter at your local pharmacy or grocery store, including the nicotine patch, nicotine lozenges, and nicotine gum. Resources for Quitting Smoking: <https://www.[place].gov/documents/[facility]/Quit_Tobacco_Resources_for_patients_313 480_7.pdf> Supplementation: Take recommended dosages of Vitamin D and Calcium to help fortify your bones and help them to heal. See your health maintenance packet for dosages and recommended levels. DVT/VTE prophylaxis: You will be given compression stockings from the hospital. Wear these daily for the first two weeks after surgery. You may take them off at night. You may be prescribed a medication to help thin your blood. Take this as directed. If you are not prescribed this medication, early and frequent ambulation has been shown to be the best prophylaxis to deep vein thrombosis and sequelae related to this event. Discharge Disposition: HOME WITH HOME HEALTH SERVICES
[2024-10-11] MEDS: HYDROmorphone 0.5 MG/0.5 ML SYRINGE IVP PRN (12:33)
--- NOTE | 2024-10-11 13:29 | P.PN ---
Subjective Progress Note Date: 10/11/24 Hospital course: Patient is a 49-year-old female with a past medical history of bipolar disorder and spinal stenosis. She is currently admitted under orthospine surgery team and is status post L5-S1 lumbar fusion with fasciotomy, foraminotomy, neuro decompression, and cage placement. We were consulted for medical management throughout hospitalization. Physical exam: Patient seen and fully evaluated at bedside this morning. She is postoperative day 1. Patient was sleeping upon entering room and was awoken via verbal and tactile stimuli. Patient reports feeling tired as she did not sleep well last night. Patient reports she was having charley horses/muscle cramps throughout her left leg just as she had prior to this surgery and she is unsure of whether or not this has improved or is about the same. She denies having any other complaints including headache, lightheadedness, dizziness, chest pain, palpitations, shortness of breath, or experiencing any focal numbness /tingling/weakness in her extremities. Patient denies having any postoperative nausea or vomiting and tolerating oral intake and reports she has been urinating without any difficulties. Vital signs reviewed and stable. General: Nontoxic, no distress and appears stated age. Derm: Skin warm and dry, normal coloration for ethnicity. Head: Atraumatic, normocephalic and symmetric. Eyes: EOM's intact, no lid lag, and anicteric sclera Mouth: no lip lesions, mucus membranes moist Cardiovascular: regular rate and rhythm with normal S1S2, no murmur, positive posterior tibial pulses bilaterally, and cap refill < 2 seconds. Lungs: Respirations even, regular, and unlabored on room air. Lungs CTA bilaterally, no rhonchi, no rales, no wheezing, and no accessory muscle usage. Abdominal: soft, nontender to palpation, no guarding, no appreciable organomegaly Ext: ROM intact. No gross muscle atrophy, no edema, no contractures Neuro: Speech clear, face symmetrical and CN II-XII grossly intact with no noted focal neuro deficits Psych: Alert and oriented to person, place, time, and situation. Appropriate and pleasant affect. Assessment and Plan of Care: Status post L5-S1 lumbar fusion with facetectomy, foraminotomy, neural decompression, and cage placement Management per primary admitting orthospine team. Including DVT prophylaxis, pain management, wound/dressing/drain management, and PT/OT. Acute blood loss anemia Stable and expected finding. Preoperative hemoglobin was 14.4 with postoperative hemoglobin of 10.8. No active bleeding. No need for transfusion or further intervention at this time. Bipolar disorder Continue Vraylar 1.5 mg nightly and olanzapine 0.5 mg nightly. Data reviewed: Morning labs reviewed. Postoperative labs revealing acute postoperative blood loss anemia with hemoglobin of 10.8. BMP was unremarkable. Blood glucose 104. Vital signs reviewed. Blood pressure 105/65, heart rate 75, respiratory rate 20, temp 98.1 F, and SpO2 of 98% on room air. Patient is medically optimized for discharge once cleared by primary admitting orthospine surgery team. Thank you for allowing us to participate in the care of this pleasant patient. Do not hesitate to contact us with questions. Someone can be reached from the [facility] hospitalist group all hours of the day at [phone] or via [employer]. This document was prepared using [employer] dictation software. Please allow for errors in passenger interline clerk, while rare they do occur. Ortega Corona NP rendered care for this patient independently, reviewed the findings and plan as documented in the note above and agree with plan. I did not physically speak with or examine the patient on this date. Objective - Vital Signs Vital signs: Vital Signs Temp 98.1 F 10/11/24 07:00 Pulse 75 10/11/24 07:00 Resp 20 10/11/24 07:00 BP 105/65 10/11/24 07:00 Pulse Ox 98 10/11/24 07:00 FiO2 Intake & Output 10/10/24 10/11/24 10/11/24 18:59 06:59 18:59 Intake Total 3150 Output Total 825 400 Balance 2325 -400 Weight 89.6 kg Intake: IV 3150 Output: Urine 750 400 Uretheral (Barney) 400 Estimated Blood Loss 75 Other: Voiding Method Indwelling Catheter - Labs CBC & Chem 7: 10/11/24 04:17 10/11/24 04:17
[2024-10-11 13:35] VITALS: BP 101/66; PULSE 61; RESP 18; TEMP 97.6
[2024-10-11] MEDS ORDERED: OLANZapine 2.5 MG TAB PO SCH (21:00)
--- NOTE | 2024-10-13 23:11 | CT ---
EXAMINATION TYPE: CT lumbar spine wo con DATE OF EXAM: 10/11/2024 7:21 AM COMPARISON: 08/17/2024 CLINICAL INDICATION: Female, 49 years old with history of s/p lumbar fusion, lumbar fusion TECHNIQUE: CT of the lumbar spine is performed on a spiral scan at 3 mm thick sections. Reconstructed images are performed in the coronal and sagittal planes. Contrast used: mL of , (none if empty) Oral contrast used: (none if empty) CT DLP: 1644.8 mGycm, Automated exposure control for dose reduction was used. FINDINGS: T12-L1: No focal disc herniation or significant disc bulge is evident. No spinal canal stenosis or neural foraminal stenosis is present. L1-L2: No focal disc herniation or significant disc bulge is evident. No spinal canal stenosis or n eural foraminal stenosis is present L2-L3: No focal disc herniation or significant disc bulge is evident. No spinal canal stenosis or n eural foraminal stenosis is present L3-L4: No focal disc herniation or significant disc bulge is evident. No spinal canal stenosis or n eural foraminal stenosis is present L4-L5: No focal disc herniation or significant disc bulge is evident. No spinal canal stenosis or n eural foraminal stenosis is present L5-S1: Disc spacer has been placed. Pedicle screws are present L5-S1. There is some limitation due to beam hardening artifact. Vertebral alignment appears normal. IMPRESSION: 1. Interval placement of disc space 05 S1 with pedicle screws at L5-S1. [facility], , 10/13/2024 11:09 PM
== END 2024-10-11 16:55 | disposition home health service (06) ==
LOC: OR 08:25 → 4SSUR 15:43 → OR 10-11 16:55
PROVIDERS: ATTEND Orthopaedic Surgery
DX: M47.27 Other spondylosis with radiculopathy, lumbosacral region (principal); M48.07 Spinal stenosis, lumbosacral region; J45.909 Unspecified asthma, uncomplicated; F17.210 Nicotine dependence, cigarettes, uncomplicated; F31.9 Bipolar disorder, unspecified; F41.9 Anxiety disorder, unspecified; M25.78 Osteophyte, vertebrae; W19.XXXA Unspecified fall, initial encounter; Z01.818 Encounter for other preprocedural examination; Z01.812 Encounter for preprocedural laboratory examination; Z87.59 Personal history of other complications of pregnancy, childbirth and the puerperium; Z88.0 Allergy status to penicillin; Z79.899 Other long term (current) drug therapy
CPT/HCPCS: 97161; 81025; 80048; 85025; 72100; 72131; 22633; 20930; 20936; C1713; C1734; J2250; J0330; J0690 ×2; J2405; J2003; J3010; J1171 ×3; J1885 ×2; J2704; J2371; J0665

== ENCOUNTER 2025-01-16 13:43 | Emergency (ER) | payer OTHER ==
[2025-01-16] MEDS: HYDROmorphone 1 MG/ML 1 ML SYRINGE IM STA (14:28)
--- NOTE | 2025-01-16 14:53 | CT ---
EXAMINATION TYPE: CT lumbar spine wo con CT DLP: 1483.6 mGycm, Automated exposure control for dose reduction was used. DATE OF EXAM: 01/16/2025 2:44 PM COMPARISON: Multiple CT lumbar spine with most recent 12/18/2024, MRI lumbar spine 06/26/2024, 9. CLINICAL INDICATION:Female, 49 years old with history of fall, prior surgery; PHH, back pain after fa ll down stairs. back sx in oct 2024, pain TECHNIQUE: Multiple axial images were obtained from the midportion of T11 through the sacroiliac jonathan nts. Soft tissue and bone windows in coronal and sagittal planes were obtained and reviewed. Contrast used: none. Oral contrast used: none. FINDINGS: Alignment: There are 5 lumbar type vertebral bodies are no spondylolisthesis. Mild levocurvature of t he lumbar spine with apex at L3. Bone: No acute fracture. Vertebral body heights are maintained. Redemonstration fixation hardware at L5-S1 with discectomy at L5-S1. Hardware appears intact. This creates streak artifact which limits ev aluation. Mild degeneration changes of the spine with osteophytes, Schmorl's nodes, facet joint arthr opathy present. Remote fracture to the left L3 transverse process. Mild degenerative changes of bilat eral SI joint with vacuum disease. Discs: T12-L1: No spinal canal or neural foraminal stenosis is identified. L1-L2: No spinal canal or neural foraminal stenosis is identified. L2-L3: No spinal canal or neural foraminal stenosis is identified. L3-L4: No spinal canal or neural foraminal stenosis is identified. L4-L5: Broad-based disc bulge with mild effacement of the anterior thecal sac. No significant central canal stenosis. Mild right facet arthropathy with mild right neural foraminal stenosis. The left julian ral foramen is patent. L5-S1: Limited evaluation due to streak artifact from hardware. No gross evidence of significant cent ral canal or neural foraminal stenosis. Other: Mild atherosclerosis of the arterial vasculature. IMPRESSION: 1. No evidence for acute fracture. 2. Redemonstration of posterior fusion changes at L5-S1. Hardware appears intact with proper alignme nt. 3. Mild degenerative disc disease of the lumbar spine at L4-L5 with mild right facet arthropathy res ulting in mild right neural foraminal stenosis. No significant neural foraminal or central canal sten osis at the remaining lumbar spine. [facility], , 01/16/2025 2:51 PM
--- NOTE | 2025-01-16 14:58 | ED ---
Fall HPI - General Chief Complaint: Fall Stated Complaint: Fall back pain Time Seen by Provider: 01/16/25 13:59 Source: patient, RN notes reviewed, old records reviewed Mode of arrival: ambulatory Limitations: no limitations - History of Present Illness Initial Comments: 49-year-old female presents emergency department complaint of lumbar back pain. Patient states she fell down several steps last night. She states she had no head injury no loss conscious. Patient states she has pain with movement. Patient states she had surgery when she had a fusion in October by Dr. Goodman Baker. Patient denies a bowel, bladder incontinence retention no saddle anesthesias. Patient states she feels some occasional numbness rating down both legs and pain but states it is very minimal. Patient has not follow-up with her doctor recently. - Related Data Home Medications Medication Instructions Recorded Confirmed Cariprazine HCl [Vraylar] 1.5 mg PO HS 10/05/24 10/05/24 OLANZapine [ZyPREXA] 0.5 mg PO HS 10/05/24 10/05/24 Previous Rx's Medication Instructions Recorded Gabapentin [Neurontin] 300 mg PO TID 60 Days #15 cap 10/11/24 HYDROcodone/APAP 10-325MG [Holbrook 1 tab PO Q6HR PRN 7 Days #28 tab 10/11/24 10-325] Sennosides/Docusate Sodium 2 each PO DAILY PRN #30 tablet 10/11/24 [Senna-S 8.6-50 mg Tablet] cefaDROXiL [Duricef] 500 mg PO Q12HR 5 Days #10 cap 10/11/24 HYDROcodone/APAP 5-325MG [[place]brook 1 tab PO Q6HR PRN 3 Days #12 tab 12/18/24 5-325] Allergies Allergy/AdvReac Type Severity Reaction Status Date / Time Penicillins Allergy Nausea & Verified 01/16/25 13:57 Vomiting Review of Systems ROS Statement: Those systems with pertinent positive or pertinent negative responses have been documented in the HPI. ROS Other: All systems not noted in ROS Statement are negative. Past Medical History Past Medical History: Asthma, Musculoskeletal Disorder Additional Past Medical History / Comment(s): chronic back pain, childhood asthma-doens't have anymore History of Any Multi-Drug Resistant Organisms: None Reported Past Surgical History: Orthopedic Surgery Additional Past Surgical History / Comment(s): rt leg surgery due to dog bite- had cellulitis & surgery, multiple D&C's, ectopic surg., surgery for "double uterus"-"extra tissue removed" Past Anesthesia/Blood Transfusion Reactions: No Reported Reaction Additional Past Anesthesia/Blood Transfusion Reaction / Comment(s): no transfusion reactions Past Psychological History: Anxiety, Bipolar, Depression Smoking Status: Current every day smoker Past Alcohol Use History: None Reported Past Drug Use History: None Reported - Past Family History Father Family Medical History: Deep Vein Thrombosis (DVT) General Exam Limitations: no limitations General appearance: alert, in no apparent distress Head exam: Present: atraumatic, normocephalic, normal inspection Eye exam: Present: normal appearance, PERRL, EOMI. Absent: scleral icterus, conjunctival injection, periorbital swelling ENT exam: Present: normal exam, normal oropharynx, mucous membranes moist Neck exam: Present: normal inspection, full ROM. Absent: tenderness, meningismus, lymphadenopathy Respiratory exam: Present: normal lung sounds bilaterally. Absent: respiratory distress, wheezes, rales, rhonchi, stridor Cardiovascular Exam: Present: regular rate, normal rhythm, normal heart sounds. Absent: systolic murmur, diastolic murmur, rubs, gallop, clicks GI/Abdominal exam: Present: soft, normal bowel sounds. Absent: distended, tenderness, guarding, rebound, rigid Extremities exam: Present: normal inspection, full ROM, normal capillary refill. Absent: tenderness, pedal edema, joint swelling, calf tenderness Back exam: Present: normal inspection, tenderness, paraspinal tenderness, vertebral tenderness. Absent: muscle spasm Neurological exam: Present: reflexes normal. Absent: motor sensory deficit Course Vital Signs 01/16/25 01/16/25 13:53 15:15 Temperature 97.8 F 98 F Pulse Rate 88 85 Respiratory 15 18 Rate Blood Pressure 157/129 130/75 O2 Sat by Pulse 98 97 Oximetry Medical Decision Making - Medical Decision Making Was pt. sent in by a medical professional or institution (, PA, SHIRT HEMMER, urgent care, hospital, or skilled nursing...) When possible be specific @ -No Did you speak to anyone other than the patient for history (EMS, parent, family, police, friend...)? What history was obtained from this source @ -No Did you review nursing and triage notes (agree or disagree)? Why? @ -I reviewed and agree with nursing and triage notes Were old charts reviewed (outside hosp., previous admission, EMS record, old EKG, old radiological studies, urgent care reports/EKG's, skilled nursing records)? Report findings @ -Reviewed prior lumbar CT and surgical records Differential Diagnosis (chest pain, altered mental status, abdominal pain women, abdominal pain men, vaginal bleeding, weakness, fever, dyspnea, syncope, headache, dizziness, GI bleed, back pain, seizure, CVA, palpatations, mental health, musculoskeletal)? @ -Rib fracture, lumbar back pain, differential Back Pain: Strain, zoster, cauda equina syndrome, epidural abscess, vertebral osteomyelitis, discitis, fracture, subluxation, disc herniation, DJD, spinal stenosis, dissection, AAA, pancreatitis, peptic ulcer disease, pyelonephritis, kidney stone, this is not meant to be an all-inclusive list. EKG interpreted by me (3pts min.). @ -[None X-rays interpreted by me (1pt min.). @ -None done CT interpreted by me (1pt min.). @ -CT lumbar spine showing degenerative changes, postsurgical changes no acute fracture U/S interpreted by me (1pt. min.). @ -None done What testing was considered but not performed or refused? (CT, X-rays, U/S, labs)? Why? @ -None What meds were considered but not given or refused? Why? @ -None Did you discuss the management of the patient with other professionals (professionals i.e. , PA, SHIRT HEMMER, lab, RT, psych nurse, social welfare administrator, intellectual property lawyer, teacher, cash management officer, disease case manager rn)? Give summary @ -No Was smoking cessation discussed for >3mins.? @ -No Was critical care preformed (if so, how long)? @ -No Were there social determinants of health that impacted care today? How? (Homelessness, low income, unemployed, alcoholism, drug addiction, transportation, low edu. Level, literacy, decrease access to med. care, [facility], rehab)? @ -No Was there de-escalation of care discussed even if they declined (Discuss DNR or withdrawal of care, Hospice)? DNR status @ -No What co-morbidities impacted this encounter? (DM, HTN, Smoking, COPD, CAD, Cancer, CVA, ARF, Chemo, Hep., AIDS, mental health diagnosis, sleep apnea, morbid obesity)? @ -None Was patient admitted / discharged? Hospital course, mention meds given and route, prescriptions, significant lab abnormalities, going to OR and other pertinent info. @ -Discharge patient presented for fall lumbar back pain. She has no red flag symptoms no acute changes patient will follow-up with her orthopedic surgeon Undiagnosed new problem with uncertain prognosis? @ -No Drug Therapy requiring intensive monitoring for toxicity (Heparin, Nitro, Insulin, Cardizem)? @ -No Were any procedures done? @ -No Diagnosis/symptom? @ -Fall lumbar back pain Acute, or Chronic, or Acute on Chronic? @ -Acute Uncomplicated (without systemic symptoms) or Complicated (systemic symptoms)? @ -Uncomplicated Side effects of treatment? @ -No Exacerbation, Progression, or Severe Exacerbation? @ -No Poses a threat to life or bodily function? How? (Chest pain, [place], [place], pneumonia, PE, COPD, DKA, ARF, appy, cholecystitis, CVA, Diverticulitis, Homicidal, Suicidal, threat to staff... and all critical care pts) @ -No Disposition Clinical Impression: Lumbar back pain Disposition: HOME SELF-CARE Condition: Stable Instructions (If sedation given, give patient instructions): Back Pain (ED) Additional Instructions: Please return to the Emergency Department if symptoms worsen or any other concerns. Is patient prescribed a controlled substance at d/c from ED?: No Referrals: Raúl Goins DO [Primary Care Provider] - 1-2 days Time of Disposition: 14:57
[2025-01-16] MEDS: ACET/COD 300 MG/30 MG STARTER PACK 6 TAB BTL PO STA (15:09)
[2025-01-16 15:17] VITALS: BP 130/75; PULSE 85; RESP 18; TEMP 98
== END 2025-01-16 15:17 | disposition home or self-care (01) ==
LOC: EC 13:43
DX: M54.50 Low back pain, unspecified (principal); F17.200 Nicotine dependence, unspecified, uncomplicated; Z88.0 Allergy status to penicillin; W10.9XXA Fall (on) (from) unspecified stairs and steps, initial encounter
CPT/HCPCS: 72131; 99284; 96372; J1171

== ENCOUNTER 2025-05-18 01:33 | Emergency (ER) | payer OTHER ==
--- NOTE | 2025-05-18 01:48 | ED ---
Back Pain HPI - General Chief Complaint: Back Pain/Injury Stated Complaint: Back pain Time Seen by Provider: 05/18/25 01:39 Source: patient, RN notes reviewed Mode of arrival: ambulatory Limitations: no limitations - History of Present Illness Initial Comments: This is a 49-year-old female who presents to the emergency department for back pain. Patient had back surgery with Dr. Valadez in October of last year. States that she has had problems with pain since, however over the last week she has had worsening pain in the left lower back radiating down into her left leg. Denies any new injuries. Denies any loss of bowel/bladder control or saddle anesthesia. She has tried [id number] pain medication without any relief. MD Complaint: back pain - Related Data Home Medications Medication Instructions Recorded Confirmed Cariprazine HCl [Vraylar] 1.5 mg PO HS 10/05/24 10/05/24 OLANZapine [ZyPREXA] 0.5 mg PO HS 10/05/24 10/05/24 Previous Rx's Medication Instructions Recorded Gabapentin [Neurontin] 300 mg PO TID 60 Days #15 cap 10/11/24 HYDROcodone/APAP 10-325MG [Clifton 1 tab PO Q6HR PRN 7 Days #28 tab 10/11/24 10-325] Sennosides/Docusate Sodium 2 each PO DAILY PRN #30 tablet 10/11/24 [Senna-S 8.6-50 mg Tablet] cefaDROXiL [Duricef] 500 mg PO Q12HR 5 Days #10 cap 10/11/24 HYDROcodone/APAP 5-325MG [Clif[place] 1 tab PO Q6HR PRN 3 Days #12 tab 12/18/24 5-325] Cyclobenzaprine [Flexeril] 10 mg PO TID PRN #30 tab 05/18/25 Ketorolac [Toradol] 10 mg PO Q6HR PRN #15 tab 05/18/25 Lidocaine 5% Patch [Lidoderm 5% 1 patch TOPICAL DAILY PRN #30 patch 05/18/25 Patch] predniSONE 50 mg PO DAILY 5 Days #5 tab 05/18/25 Allergies Allergy/AdvReac Type Severity Reaction Status Date / Time codeine Allergy Rash/Hives Verified 05/18/25 01:39 Penicillins Allergy Nausea & Verified 05/18/25 01:39 Vomiting Review of Systems ROS Statement: Those systems with pertinent positive or pertinent negative responses have been documented in the HPI. ROS Other: All systems not noted in ROS Statement are negative. Past Medical History Past Medical History: Asthma, Musculoskeletal Disorder Additional Past Medical History / Comment(s): chronic back pain, childhood asthma-doens't have anymore History of Any Multi-Drug Resistant Organisms: None Reported Past Surgical History: Orthopedic Surgery Additional Past Surgical History / Comment(s): rt leg surgery due to dog bite- had cellulitis & surgery, multiple D&C's, ectopic surg., surgery for "double uterus"-"extra tissue removed" Past Anesthesia/Blood Transfusion Reactions: No Reported Reaction Additional Past Anesthesia/Blood Transfusion Reaction / Comment(s): no transfusion reactions Past Psychological History: Anxiety, Bipolar, Depression Smoking Status: Current every day smoker Past Alcohol Use History: None Reported Past Drug Use History: None Reported - Past Family History Father Family Medical History: Deep Vein Thrombosis (DVT) General Exam Limitations: no limitations General appearance: alert, in no apparent distress Head exam: Present: atraumatic, normocephalic, normal inspection Respiratory exam: Present: normal lung sounds bilaterally. Absent: respiratory distress, wheezes, rales, rhonchi, stridor Cardiovascular Exam: Present: regular rate, normal rhythm Back exam: Present: other (Tenderness to palpation over the left lower back) Neurological exam: Present: alert, oriented X3, CN II-XII intact Psychiatric exam: Present: normal affect, normal mood Skin exam: Present: warm, dry, intact, normal color. Absent: rash Course Vital Signs 05/18/25 05/18/25 01:36 03:40 Temperature 97.7 F 97.8 F Pulse Rate 94 91 Respiratory 19 18 Rate Blood Pressure 134/78 O2 Sat by Pulse 98 97 Oximetry Medical Decision Making - Medical Decision Making This is a 49-year-old female who presents to the emergency department for back pain. Was pt. sent in by a medical professional or institution? @ -No Did you speak to anyone other than the patient for history? @ -No Did you review nursing and triage notes? @ -Yes, and I agree, it is accurate with regards to the patient's symptoms. Were old charts reviewed? @ -No Differential Diagnosis? @ -Differential Back Pain: Strain, zoster, cauda equina syndrome, epidural abscess, vertebral osteomyelitis, discitis, fracture, subluxation, disc herniation, DJD, spinal stenosis, dissection, AAA, pancreatitis, peptic ulcer disease, pyelonephritis, kidney stone, this is not meant to be an all-inclusive list. EKG interpreted by me (3pts min.)? @ -Not obtained X-rays interpreted by me (1pt min.)? @ -X-ray of the lumbar spine obtained. My interpretation identifies no acute fractures. CT interpreted by me (1pt min.)? @ -Not obtained U/S interpreted by me (1pt. min.)? @ -Not obtained What testing was considered but not performed? (CT, X-rays, U/S, labs)? Why? @ -None What meds were considered but not given? Why? @ -None Did you discuss the management of the patient with other professionals? @ -No Did you reconcile home meds? @ -No Was smoking cessation discussed for >3mins.? @ -I discussed smoking cessation for greater than 3 minutes. The risk of smoking were discussed with the patient including but not limited to risks of cancer, stroke, coronary artery disease and COPD. Also discussed with patient were multiple methods of quitting smoking. Lastly we discussed the financial cost of smoking. Was critical care preformed (if so, how long)? @ -No Were there social determinants of health that impacted care today? How? (Homelessness, low income, unemployed, alcoholism, drug addiction, transportation, low edu. Level, literacy, decrease access to med. care, skilled nursing, rehab)? @ -No Was there de-escalation of care discussed even if they declined? (Discuss DNR or withdrawal of care, Hospice)? @ -No What co-morbidities impacted this encounter? (DM, HTN, Smoking, COPD, CAD, Cancer, CVA, Hep., AIDS, mental health diagnosis, sleep apnea, morbid obesity)? @ -Smoking, chronic back pain Was patient admitted / discharged? @ -Discharged. X-ray of the lumbar spine obtained to evaluate for any problems related to her hardware. Her hardware from the lumbar fusion appeared intact and no other irregularities were identified. Pain was well-controlled in the emergency department. The description of her symptoms is suggestive of something like sciatica or lumbar radiculopathy. Prescription for prednisone, Toradol, Flexeril, and lidocaine patches provided with dosing instructions reviewed. Otherwise advised follow-up with her PCP and orthopedics. Patient discharged home in stable condition. Case discussed with ED attending Dr. Louis. Return precautions reviewed in depth, the patient is instructed to return to the emergency department with any new, worsening, or concerning symptoms. Patient verbalized understanding. Undiagnosed new problem with uncertain prognosis? @ -None Drug Therapy requiring intensive monitoring for toxicity (Heparin, Nitro, Insulin, Cardizem)? @ -None Were any procedures done? @ -None Diagnosis/symptom? @ -Left lumbar radiculopathy, sciatica Acute, or Chronic, or Acute on Chronic? @ -Acute Uncomplicated (without systemic symptoms) or Complicated (systemic symptoms)? @ -Uncomplicated Side effects of treatment? @ -None Exacerbation, Progression, or Severe Exacerbation] @ -Not applicable Poses a threat to life or bodily function? @ -No - Radiology Data Radiology results: report reviewed, image reviewed Disposition Clinical Impression: Left lumbar radiculopathy, Left sided sciatica, Nicotine dependence Disposition: HOME SELF-CARE Instructions (If sedation given, give patient instructions): Sciatica (ED), Lumbar Radiculopathy (ED) Additional Instructions: Return to the emergency department with any new, worsening, or concerning symptoms. Take the prednisone daily for 5 days. Take the Toradol with Tylenol as needed for pain relief. If you choose to take the Toradol, do not take any other anti-inflammatories such as ibuprofen, take one or the other. Take the Flexeril up to 3 times daily, however be aware that it may make you drowsy. You can also apply the lidocaine patches daily. Follow up with your primary care provider in 1-2 days. Prescriptions: Cyclobenzaprine [Flexeril] 10 mg PO TID PRN #30 tab PRN Reason: Pain Lidocaine 5% Patch [Lidoderm 5% Patch] 1 patch TOPICAL DAILY PRN #30 patch PRN Reason: Pain predniSONE 50 mg PO DAILY 5 Days #5 tab Ketorolac [Toradol] 10 mg PO Q6HR PRN #15 tab PRN Reason: Pain Is patient prescribed a controlled substance at d/c from ED?: No Referrals: Briseida,Raúl, [Primary Care Provider] - 1-2 days Time of Disposition: 03:28
[2025-05-18] MEDS: MORPHINE SULFATE 4 MG/ML SYRINGE IM STA (01:51)
[2025-05-18] MEDS: DEXAMETHASONE SOD PHOSPHATE 10 MG/ML 1 ML VIAL IM STA (01:51)
[2025-05-18] MEDS: KETOROLAC 15 MG/ML 1 ML VIAL IM STA (01:51)
[2025-05-18] MEDS: LIDOCAINE 4% PATCH TOPICAL ONE (01:52)
[2025-05-18] MEDS: ORPHENADRINE 30 MG/ML 2 ML VIAL IM STA (01:52)
--- NOTE | 2025-05-18 03:00 | XR ---
EXAM: XR Lumbosacral Spine, 2 or 3 Views CLINICAL HISTORY: ITS.REASON XR Reason: Back pain, hx of spinal surgery TECHNIQUE: Frontal and lateral views of the lumbar spine and sacrum. COMPARISON: No relevant prior studies available. FINDINGS: Vertebrae: Osseous demineralization. No acute fracture. No spondylolisthesis. Sacrum/coccyx: Unremarkable as visualized. No acute fracture. Disc spaces: Posterior fusion at L5-S1. Soft tissues: Unremarkable. IMPRESSION: 1. No spondylolisthesis. 2. Posterior fusion at L5-S1.
[2025-05-18] MEDS: HYDROcodone/APAP 5-325MG 1 EACH TAB PO STA (03:38)
[2025-05-18] MEDS: traMADol 50 MG STARTER PACK TAB BTL PO STA (03:38)
[2025-05-18 03:41] VITALS: BP 134/78; PULSE 91; RESP 18; TEMP 97.8
== END 2025-05-18 03:41 | disposition home or self-care (01) ==
LOC: EC 01:33
DX: M54.16 Radiculopathy, lumbar region (principal); M54.42 Lumbago with sciatica, left side; G89.29 Other chronic pain; F17.200 Nicotine dependence, unspecified, uncomplicated; Z88.0 Allergy status to penicillin; Z88.5 Allergy status to narcotic agent
CPT/HCPCS: 72100; 99283; 96372; J2270; J1100; J2360; J1885